=== PATIENT | female | born 1965 | race Caucasian/White ===

== ENCOUNTER 2023-02-22 14:55 | Outpatient (REF) | payer OTHER, SELFPAY ==
--- NOTE | ~2023-02-22 | MR_ITS ---
EXAMINATION: MRI of the right lower leg without contrast CLINICAL INFORMATION: Pain in right leg COMPARISON: None. TECHNIQUE: MRI right lower leg was performed without contrast and high field MRI scanner. Imaging was performed from the knee to the ankle. FINDINGS: Subcutaneous soft tissues: Scattered fluidlike signal throughout the lower leg primarily along the anterior medial aspect. This likely reflects edema rather than cellulitis. Muscles/tendons: Normal. Neurovascular structures normal. Bone: Normal. MR/MR lower leg RT wo con IMPRESSION: Mild fluidlike signal scattered about the lower leg primarily anteromedially more likely reflects edema than cellulitis. No mass. No fracture.
== END 2023-02-22 14:56 | disposition home or self-care (01) ==
LOC: HO.MRI 14:55
PROVIDERS: Visit Provider Family Medicine Sports Medicine
DX: M79.604 Pain in right leg (principal)
CPT/HCPCS: 73718

== ENCOUNTER 2023-05-26 11:29 | Outpatient (AMB) | payer OTHER, SELFPAY ==
--- NOTE | 2023-05-26 11:29 | A.OFFVIS_ITS ---
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 Wears compression all day and night. States reduce the swelling but doesn't treat the pain. Pt states she is on her feet a lot. Accompanied by: Self / Same As Patient Allergies No Known Allergies Allergy (Verified 05/26/23 11:33) HPI Circular Sawyer Helper for Leg Swelling HPI Details Very pleasant 58-year-old female presents for swelling of the lower extremities. 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 It is noted more so in right leg. Of note she has seen a sports marketing coordinator. She has been in compression for 24 hours a day. Seems to provide minimal relief. Patient denies any previous venous surgery or injections. Patient denies any history of DVT/ PE. Patient denies any history of phlebitis. Trial of compression includes - prescription 30-40 mmHg compression They now present for vascular evaluation regarding their varicose veins. [facility] Medical History (Updated 05/27/23 @ 10:36 by Toan Garcia MD) Hypothyroidism Social History (Updated 05/26/23 @ 11:35 by EVER Goodwin) Patient Tobacco Use Status: Never used Tobacco Review of Systems Const Reports as per HPI ENT Reports no additional complaints Card Denies chest pain, Denies chest pain at rest and Denies chest pain with activity Resp Denies chest congestion and Denies cough GI Reports no additional complaints Musc Details: pain over varicosities, aching of lower extremities, swelling, cramping, heaviness and tiredness, itching Denies abnormal gait Skin/Breast Reports pruritus and Denies wounds Neuro Reports no additional complaints and Denies abnormal gait Psych Denies no additional complaints Physical Exam Vital Signs: BMI result Body Mass Index 25.7 Const General: cooperative, healthy appearing and comfortable Orientation/consciousness: oriented to person, oriented to place and oriented to time Neck Carotids: no bruits Chest Chest palpation & inspection: normal inspection of the chest and normal palpation of entire chest wall Resp Effort & Inspection: normal respiratory effort and able to speak in complete sentences Cardio Rate: regular rate Heart sounds: S1 normal heart sound present and S2 normal heart sound present Peripheral pulses: Peripheral pulses 2+ throughout GI Inspection: Yes normal to inspection Skin Other: +2 edema, over right medial malleolus CEAP Classification C4 - skin color changes Ep - Etiology Primary As - superficial veins P - reflux General skin exam: dry skin Neuro General: oriented to person, oriented to place and oriented to time Extrem Other: Pinpoint tenderness over the right medial malleolus in particular the ankle and tendon Right lower extremity: full ROM, normal capillary refill and edema Left lower extremity: full ROM, normal capillary refill and edema Psych Mental Status: mental status grossly normal Assessment & Plan Assessment & Plan (1) Varicose veins of right lower extremity with inflammation: Code(s): I83.11 - Varicose veins of right lower extremity with inflammation Plan: In short patient has right lower extremity swelling and pain. I have taken the liberty of ordering venous insufficiency testing to rule that out. In addition I do think there is a musculoskeletal component to this as she does have pinpoint tenderness over there. Should this prove to be negative she may benefit from a podiatry evaluation. Thank you for allowing us to assist in her care. If there are any questions or concerns please do not hesitate to contact us Orders: Orders US venous insuf bilat 1 Week I83.11 - Varicose veins of right lower extremity with inflammation Coding Level of Care Code New Pt Level 4 (72948) Diagnoses Varicose veins of right lower extremity with inflammation I83.11
[2023-05-26 11:30] VITALS: BMI 25.7
== END 2023-05-26 11:58 | disposition home or self-care (01) ==
PROVIDERS: Visit Provider Surgery Vascular Surgery
DX: I83.11 Varicose veins of right lower extremity with inflammation (principal)
CPT/HCPCS: 99203

== ENCOUNTER → 2023-05-26 11:29 | Outpatient (BNVA) | payer OTHER, SELFPAY | PROVIDERS: Visit Provider Surgery Vascular Surgery ==

== ENCOUNTER 2023-06-15 13:01 | Outpatient (REF) | payer OTHER, SELFPAY ==
--- NOTE | ~2023-06-15 | US_ITS ---
EXAMINATION: US LOWER EXTREMITY VENOUS (REFLUX EXAM), BILATERAL CLINICAL INFORMATION: Chronic venous insufficiency with lower extremity varicose veins with inflammation COMPARISON: None. TECHNIQUE: Color flow triplex imaging and compression Doppler was performed to evaluate both the deep and the superficial systems bilaterally. To evaluate the superficial system, the examination was performed in the upright position. Color-flow Doppler ultrasound and compression ultrasound were utilized. In addition, maneuvers were utilized to demonstrate reflux. FINDINGS: 1. DEEP VENOUS ULTRASOUND OF THE RIGHT LOWER EXTREMITY: Common Femoral Vein: Compressible, normal respiratory variation and augmented flow. Femoral Vein: Compressible, normal color flow and augmentation. Popliteal Vein: Compressible, normal augmentation. Deep Reflux: There is no evidence of reflux in the deep system in either the common femoral vein, superficial femoral or the popliteal vein. There is no evidence of a Weber's cyst. 2. SUPERFICIAL ULTRASOUND WITH DOPPLER OF RIGHT LOWER EXTREMITY: GREAT SAPHENOUS VEIN: Saphenofemoral Junction: 0.7 cm; Reflux: 0 ms Proximal Thigh: 0.3 cm; Reflux: 0 ms Mid Thigh: 0.3 cm; Reflux: 0 ms Distal Thigh: 0.3 cm; Reflux: 2536 ms At Knee: 0.3 cm; Reflux: 1764 ms Proximal Calf: 0.3 cm; Reflux: 1668 ms Mid Calf: 0.2 cm; Reflux: 0 ms Distal Calf: 0.3 cm; Reflux: 0 ms DUPLICATED MEDIAL GREAT SAPHENOUS VEIN: Diameter: None imaged Reflux: NA DUPLICATED LATERAL GREAT SAPHENOUS VEIN: Diameter: 0.3 cm Reflux: None SMALL SAPHENOUS VEIN: Saphenopopliteal Junction: 0.3 cm; Reflux: 0 ms Proximal: 0.1 cm; Reflux: 0 ms Distal: 0.2 cm; Reflux: 0 ms VEIN OF GIACOMINI: Size: NA Reflux: NA PERFORATORS: Location: Mid calf Size: 0.3 cm Reflux: None VARICOSITIES: Location: Thigh into the proximal calf between both the lateral duplicated great saphenous vein and great saphenous vein Size: 0.3 cm Reflux: 2404 ms 3. DEEP VENOUS ULTRASOUND OF THE LEFT LOWER EXTREMITY: Common Femoral Vein: Compressible, normal respiratory variation and augmented flow. Femoral Vein: Compressible, normal color flow and augmentation. Popliteal Vein: Compressible, normal augmentation. Deep Reflux: There is no evidence of reflux in the deep system in either the common femoral vein, superficial femoral or the popliteal vein. There is no evidence of a Weber's cyst. 4. SUPERFICIAL ULTRASOUND WITH DOPPLER OF LEFT LOWER EXTREMITY: GREAT SAPHENOUS VEIN: Saphenofemoral Junction: 0.5 cm; Reflux: 0 ms Proximal Thigh: 0.4 cm; Reflux: 0 ms Mid Thigh: 0.4 cm; Reflux: 0 ms Distal Thigh: 0.3 cm; Reflux: 0 ms At Knee: 0.3 cm; Reflux: 0 ms Proximal Calf: 0.3 cm; Reflux: 0 ms Mid Calf: 0.2 cm; Reflux: 0 ms Distal Calf: 0.2 cm; Reflux: 0 ms DUPLICATED MEDIAL GREAT SAPHENOUS VEIN: Diameter: None imaged Reflux: NA DUPLICATED LATERAL GREAT SAPHENOUS VEIN: Diameter: 0.3 cm Reflux: None SMALL SAPHENOUS VEIN: Saphenopopliteal Junction: 0.3 cm; Reflux: 0 ms Proximal: 0.3 cm; Reflux: 0 ms Distal: 0.2 cm; Reflux: 0 ms VEIN OF GIACOMINI: Size: NA Reflux: NA PERFORATORS: Location: None imaged Size: NA Reflux: NA VARICOSITIES: Location: Proximal thigh Size: 0.4 cm Reflux: None US/US venous insuf bilat IMPRESSION: Right: Segmental areas of reflux in the great saphenous vein extending from the distal thigh to the proximal calf. There are varicose veins within the calf extending into the proximal thigh arising from of both the great saphenous vein and lateral duplicated great saphenous vein Left: No significant venous insufficiency or reflux in the left great saphenous vein or small saphenous vein
== END 2023-06-15 13:02 | disposition home or self-care (01) ==
LOC: HO.US 13:01
PROVIDERS: Visit Provider Surgery Vascular Surgery
DX: I83.11 Varicose veins of right lower extremity with inflammation (principal)
CPT/HCPCS: 93970

== ENCOUNTER 2023-09-14 13:28 | Outpatient (AMB) | payer OTHER, SELFPAY ==
[2023-09-14 13:36] VITALS: BMI 25.7
--- NOTE | 2023-09-14 13:36 | A.OFFVIS_ITS ---
Vital Signs 09/14/23 13:36 Height 5 ft 4 in Weight 150 lb BMI 25.7 Intake Visit Reasons: fu after ultrasound Intake Note: follow up US 06/15/23 for Right LE swelling, states on her feet a lot Accompanied by: Self / Same As Patient Allergies No Known Allergies Allergy (Verified 09/14/23 13:40) HPI HPI fu after ultrasound: Details: Very pleasant 58-year-old female presents for follow-up regarding right lower extremity pain and swelling. It has been a source of discomfort for her. 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 She has had a trial of compression with some mild relief. She now presents for follow-up with venous insufficiency testing. [facility] Medical History Hypothyroidism Social History Patient Tobacco Use Status: Never used Tobacco Review of Systems Const Reports as per HPI ENT Reports no additional complaints Card Denies chest pain, Denies chest pain at rest and Denies chest pain with activity Resp Denies chest congestion and Denies cough GI Reports no additional complaints Musc Details: pain over varicosities, aching of lower extremities, swelling, cramping, heaviness and tiredness, itching Denies abnormal gait Skin/Breast Reports pruritus and Denies wounds Neuro Reports no additional complaints and Denies abnormal gait Psych Denies no additional complaints Physical Exam Vital Signs: BMI result Body Mass Index 25.7 Const General: cooperative, healthy appearing and comfortable Orientation/consciousness: oriented to person, oriented to place and oriented to time Neck Carotids: no bruits Chest Chest palpation & inspection: normal inspection of the chest and normal palpation of entire chest wall Resp Effort & Inspection: normal respiratory effort and able to speak in complete sentences Cardio Rate: regular rate Heart sounds: S1 normal heart sound present and S2 normal heart sound present Peripheral pulses: Peripheral pulses 2+ throughout GI Inspection: Yes normal to inspection Skin Other: +2 edema, large rope-like varicosities greater than 4 mm right calf CEAP Classification C4 - skin color changes Ep - Etiology Primary As - superficial veins P - reflux General skin exam: dry skin Neuro General: oriented to person, oriented to place and oriented to time Extrem Right lower extremity: full ROM, normal capillary refill and edema Left lower extremity: full ROM, normal capillary refill and edema Psych Mental Status: mental status grossly normal Results Reviewed Results Reviewed: Brief summary of venous insufficiency testing is as follows: right great saphenous vein: Positive right small saphenous vein: negative right accessory vein: none present left great saphenous vein: negative left small saphenous vein: negative left accessory vein: none present Please note there is no evidence of any venous aneurysms or significant tortuosity Assessment & Plan Assessment & Plan (1) Varicose veins of right lower extremity with inflammation: Code(s): I83.11 - Varicose veins of right lower extremity with inflammation Category: Medical Plan: This patient has varicose veins with inflammation. They continue to be a source of discomfort for the patient. The patient has tried conservative treatment with compression, leg elevation and exercise program for over 3 months time. They have been compliant with all treatment. This has provided minimal relief for the patient. I do not anticipate this course of treatment will alter the underlying etiology. The patient has been scheduled for lower extremity venous treatment inclusive of --- right great saphenous vein Cyanoacralate ablation. Risks, benefits, and complications of this procedure has been discussed in detail with the patient including but not limited to bleeding, infection, and the development of a DVT. The patient has demonstrated a clear understanding and has consented. We will schedule the patient as soon as possible. Thank you for allowing us to participate in this patient's care. If there are any questions or concerns please do not hesitate to contact us. Coding Level of Care Code Est Pt Level 4 (80576) Diagnoses Varicose veins of right lower extremity with inflammation I83.11
== END 2023-09-14 14:26 | disposition home or self-care (01) ==
PROVIDERS: Visit Provider Surgery Vascular Surgery
DX: I83.11 Varicose veins of right lower extremity with inflammation (principal)
CPT/HCPCS: 99214

== ENCOUNTER → 2023-09-14 13:28 | Outpatient (BNVA) | payer OTHER, SELFPAY | PROVIDERS: Visit Provider Surgery Vascular Surgery ==

== ENCOUNTER 2024-01-06 09:20 | Outpatient (AMB) | payer OTHER, SELFPAY ==
--- NOTE | 2024-01-06 09:46 | MHC.OFFVIS ---
Intake Visit Reasons: Right GSV RFA Accompanied by: Self / Same As Patient Allergies No Known Allergies Allergy (Verified 01/06/24 09:46) PFSH Medical History Hypothyroidism Social History Patient Tobacco Use Status: Never used Tobacco Office Procedures Vascular Office Procedure Details Details: Diagnosis: Varicose veins with inflammation of right leg Procedure: Endovenous radiofrequency ablation of the right great saphenous vein(s) of the lower extremity. Anesthesia: Local infiltration 10 cc, Tumescent 200 cc. Estimated Blood Loss: minimal Specimen: Varicose veins The patient was transferred to the procedure suite and the insufficient saphenous vein was mapped by ultrasound and diagrammed on the overlying skin. The depth and diameter of the vein(s) to be treated was documented. The varicose tributary veins and suitable access sites were identified and mapped as well. The patient was then positioned supine on the procedure table. The affected limb was prepped and draped in the usual sterile fashion. The RF catheter was placed on the sterile field, flushed and wiped down, prepared, and connected by a sterile cable. The patient was placed in supine position and local anesthesia was instilled in the skin overlying the access site. A skin incision was made overlying the identified and mapped great saphenous vein entry site. The vein was accessed using ultrasound guidance and the Seldinger technique, a guide wire was introduced through the needle, which was then exchanged over the guide wire for a 6F sheath, which was secured in place. The guide wire was removed and the sheath was flushed. The RF catheter was placed into the vein through the sheath and preferentially, imaging was used to place the catheter tip just inferior to the superficial epigastric vein to preserve normal physiological flow in that vein. Additionally, it was confirmed by ultrasound guidance that the catheter tip was also placed a minimum of 1.5cm distal to the saphenofemoral junction. After the RF catheter position was verified by ultrasound, tumescent anesthesia was infiltrated, under ultrasound guidance, precisely into the perivenous compartment along the entire length of vein from the entry site to the saphenofemoral junction until a halo of fluid was noted around the vein. The patient was then placed in supine position to further exsanguinate the superficial venous system. After RF catheter position was again confirmed with ultrasound imaging, and under direct external compression along the length of the heating element, RF energy was applied. The vein was segmentally ablated by heating a 8 cm segment and then indexing the catheter forward by 7.5 cm until the treatment length is completed. Device temperature was maintained at 120 plus or minus 5 degrees C with an initial power level of 40W dropping to below 20W for each treatment. Total vein length treated 40 cm Total cycles of RF 6. Repeat ultrasound of the saphenous vein was performed, confirming successful treatment. The catheter and sheath were withdrawn and hemostasis established with direct pressure. After assuring hemostasis, the skin incision over the saphenous vein was closed with a bandage and a compression wrap, and/ or graduated compression stocking was applied from the level of the foot to the most proximal level of the thigh. 63272 - Endovenous RF, 1st Vein All charges added?: Procedure code (CPT) selection complete Assessment & Plan Assessment & Plan (1) Varicose veins of right lower extremity with inflammation: Comment: 01/06/2024 - right great saphenous vein radiofrequency ablation Code(s): I83.11 - Varicose veins of right lower extremity with inflammation Category: Medical Plan: See op note Orders: Orders US venous duplex LE RT 01/09/24 M79.604 - Pain in right leg Coding Level of Care Code Procedure Only Diagnoses Varicose veins of right lower extremity with inflammation I83.11 CPT Codes Details - Vascular 1: 05578 - Endovenous RF, 1st Vein ([id number])
== END 2024-01-06 11:03 | disposition home or self-care (01) ==
PROVIDERS: Visit Provider Surgery Vascular Surgery
DX: I83.11 Varicose veins of right lower extremity with inflammation (principal)
CPT/HCPCS: 36475

== ENCOUNTER → 2024-01-06 09:20 | Outpatient (BNVA) | payer OTHER, SELFPAY | PROVIDERS: Visit Provider Surgery Vascular Surgery | DX: I83.11 Varicose veins of right lower extremity with inflammation (principal) | CPT/HCPCS: 36475; J2003; J2004 ==

== ENCOUNTER 2024-01-09 14:29 | Outpatient (REF) | payer OTHER, SELFPAY ==
--- NOTE | ~2024-01-09 | US_ITS ---
EXAMINATION: TRIPLEX SCANNING OF RIGHT LOWER EXTREMITY; SUPERFICIAL ULTRASOUND WITH DOPPLER OF RIGHT LOWER EXTREMITY CLINICAL INFORMATION: Status post RF ablation the right great saphenous vein originally performed on 01/06/2024. COMPARISON: Preprocedure studies. TECHNIQUE: Color flow triplex imaging and compression Doppler were performed as well as superficial ultrasound with Doppler. FINDINGS: TRIPLEX SCANNING OF RIGHT LOWER EXTREMITY: Respiratory variation, normal compression and augmented flow are noted throughout the lower extremity. The visualized common femoral vein, femoral vein, profunda femoral vein, popliteal vein and the calf veins show no evidence of deep venous thrombosis. There is no evidence of Weber's cyst. SUPERFICIAL ULTRASOUND WITH DOPPLER OF RIGHT LOWER EXTREMITY: The right great saphenous vein is occluded from the access site to 3.7 cm before the saphenofemoral junction. There is no extension of thrombus into the deep system. US/US venous duplex LE RT IMPRESSION: 1. Normal triplex scan of the right without evidence of deep venous thrombosis. 2. Excellent appearance status post ablation of the right great saphenous vein. Electronically signed by: Poncho Simms MD 01/10/2024 12:32 AM MICHI
== END 2024-01-09 14:30 | disposition home or self-care (01) ==
LOC: HO.US 14:29
PROVIDERS: Visit Provider Surgery Vascular Surgery
DX: M79.604 Pain in right leg (principal)
CPT/HCPCS: 93971

== ENCOUNTER 2024-01-17 09:55 | Outpatient (AMB) | payer OTHER, SELFPAY ==
[2024-01-17 09:59] VITALS: BMI 25.7
--- NOTE | 2024-01-17 09:59 | MHC.OFFVIS ---
Vital Signs 01/17/24 09:59 Height 5 ft 4 in Weight 150 lb BMI 25.7 Intake Visit Reasons: 2 week follow up Right GSV RFA 01/06/24 Intake Note: 2 week follow up Right GSV RFA 01/06/24. Pt states she started getting a rash this past tuesday over treated area and is now getting hives over her body. Accompanied by: Self / Same As Patient Allergies No Known Allergies Allergy (Verified 01/17/24 10:05) HPI HPI 2 week follow up Right GSV RFA 01/06/24: Details: Pleasant 58-year-old female presents for follow-up status post right great saphenous vein radiofrequency ablation. She reports that overall her leg appears to be doing somewhat better. The swelling in the ankle and calf have improved a little bit. Her only concern is that there is a bit of a reaction along the leg. She is also noticing a rash in her right upper extremity. She now presents for routine postprocedure follow-up. Of note postprocedure ultrasound was negative for DVT. [facility] Medical History Hypothyroidism Social History Patient Tobacco Use Status: Never used Tobacco Review of Systems Const All systems reviewed & are unremarkable except as noted in HPI and below Reports no additional complaints ENT Reports Normal hearing present Card Denies chest pain, Denies chest pain at rest, Denies chest pain with activity and Denies pedal edema Resp Denies cough GI Denies abdominal pain Musc Denies abnormal gait, Denies muscle cramps and Denies radiating pain into limb Skin/Breast Denies skin ulcer and Denies wounds Neuro Reports Normal hearing present and Denies abnormal gait Psych Reports no additional complaints Physical Exam Vital Signs: BMI result Body Mass Index 25.7 Const General: cooperative, healthy appearing and comfortable Orientation/consciousness: oriented to person, oriented to place and oriented to time HEENT Head: Yes normal to inspection Neck Neck: Yes normal visual inspection Carotids: no bruits Chest Chest palpation & inspection: normal inspection of the chest Resp Effort & Inspection: normal respiratory effort and able to speak in complete sentences Auscultation: clear to auscultation bilaterally, no crackles, no rales, no rhonchi and no wheezes Cardio Rate: regular rate Rhythm: regular rhythm Heart sounds: S1 normal heart sound present and S2 normal heart sound present Bruits: no carotid bruits Peripheral pulses: Peripheral pulses 2+ throughout GI Inspection: Yes normal to inspection Skin Wounds: no wounds Hair: normal Neuro General: oriented to person, oriented to place and oriented to time Cranial nerves: Yes CN's II-XII intact bilaterally and Yes Normal hearing present Cognition (Neuro): normal cognition Motor exam (neuro): 5/5 motor strength present throughout Extrem Other: venous exam: No significant superficial varicosities or spider telangiectasias, minimal edema General: No clubbing, No cyanosis and No edema Psych Appearance: grossly normal Mental Status: mental status grossly normal Speech and movement: Normal speech and movement present Assessment & Plan Assessment & Plan (1) Varicose veins of right lower extremity with inflammation: Comment: 01/06/2024 - right great saphenous vein radiofrequency ablation Code(s): I83.11 - Varicose veins of right lower extremity with inflammation Category: Medical Plan: The patient has done extremely well with all venous treatments. She may have a bit of an allergic reaction and we did discuss use of Benadryl. Should it worsen I requested that she call us back and may require a Medrol Dosepak and Claritin. Patient's may often experience postprocedure phlebitic episodes and I have discussed with the patient use of warm compresses and NSAIDS if tolerated for pain discomfort. In addition, I have discussed continued conservative measures including use of compression, leg elevation, and exercise. The patient was also given an information sheet regarding appropriate use of compression stockings and future purchases. Thank you for allowing us to care for your patient with venous disease. Coding Level of Care Code Est Pt Level 3 (84551) Diagnoses Varicose veins of right lower extremity with inflammation I83.11
== END 2024-01-17 10:36 | disposition home or self-care (01) ==
PROVIDERS: Visit Provider Surgery Vascular Surgery
DX: I83.11 Varicose veins of right lower extremity with inflammation (principal)
CPT/HCPCS: 99213

== ENCOUNTER 2024-08-07 13:08 | Outpatient (AMB) | payer OTHER, SELFPAY ==
[2024-08-07 13:11] VITALS: BMI 25.7
--- NOTE | 2024-08-07 13:11 | MHC.OFFVIS ---
Vital Signs 08/07/24 13:11 Height 5 ft 4 in Weight 150 lb BMI 25.7 Intake Visit Reasons: follow up ablation new VV Intake Note: Follow up new VV on Right LE w/ swelling. Hx of Right GSV RFA 01/06/24. Pt states that it started after last vein procedure. 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 The patient underwent a right great saphenous vein ablation on January 06, 2024, resulting in initial symptomatic improvement. However, she presents today with ongoing venous issues, including notable episodic swelling in the right leg, occasionally extending to the foot. This symptomatology includes a persistent sensation of tightness and splotchiness on the right side, which varies in severity. The patient observes noticeable swelling on the right side compared to the left, exacerbated since the procedure. Scarring and skin changes such as splotchiness have been observed, although their direct relationship to the vein condition is uncertain. To address these symptoms, a repeat ultrasound has been advised for diagnostic re-evaluation and to ascertain any deviations from the expected physiological re-channeling of blood flow post-ablation. Despite intermittent mild discomfort on the left side, the patient reports no substantial or consistent issues. In addition, the potential contributory aspect of inflammatory processes such as tendinitis was noted, possibly influencing the generalized leg swelling. [facility] Medical History Hypothyroidism Social History Patient Tobacco Use Status: Never used Tobacco Review of Systems Const Reports as per HPI ENT Reports no additional complaints Card Denies chest pain, Denies chest pain at rest and Denies chest pain with activity Resp Denies chest congestion and Denies cough GI Reports no additional complaints Musc Details: pain over varicosities, aching of lower extremities, swelling, cramping, heaviness and tiredness, itching Denies abnormal gait Skin/Breast Reports pruritus and Denies wounds Neuro Reports no additional complaints and Denies abnormal gait Psych Denies no additional complaints Physical Exam Vital Signs: BMI result Body Mass Index 25.7 Const General: cooperative, healthy appearing and comfortable Orientation/consciousness: oriented to person, oriented to place and oriented to time Neck Carotids: no bruits Chest Chest palpation & inspection: normal inspection of the chest and normal palpation of entire chest wall Resp Effort & Inspection: normal respiratory effort and able to speak in complete sentences Cardio Rate: regular rate Heart sounds: S1 normal heart sound present and S2 normal heart sound present Peripheral pulses: Peripheral pulses 2+ throughout GI Inspection: Yes normal to inspection Skin Other: +2 edema, large rope-like varicosities greater than 4 mm right calf CEAP Classification C4 - skin color changes Ep - Etiology Primary As - superficial veins P - reflux General skin exam: dry skin Neuro General: oriented to person, oriented to place and oriented to time Extrem Right lower extremity: full ROM, normal capillary refill and edema Left lower extremity: full ROM, normal capillary refill and edema Psych Mental Status: mental status grossly normal Assessment & Plan Assessment & Plan (1) Varicose veins of right lower extremity with inflammation: Comment: 01/06/2024 - right great saphenous vein radiofrequency ablation Code(s): I83.11 - Varicose veins of right lower extremity with inflammation Category: Medical Plan: A right-sided ultrasound is planned to evaluate the patient's venous status post-ablation. This diagnostic measure will help elucidate the basis of her current swelling and guide further management. Compression stockings and leg elevation remain recommended interim strategies to alleviate symptoms. Follow-up will be scheduled to discuss the results and consider any additional interventions based on the findings. Patient was informed and verbally consented to the use of an ambient scribe for clinic note documentation during this visit. Plan Patient was informed and verbally consented to the use of an ambient scribe for clinic note documentation during this visit. Orders: Orders US venous duplex LE RT 1 Week I83.11 - Varicose veins of right lower extremity with inflammation Patient Instructions: - Use compression stockings as recommended. - Elevate legs when possible to reduce swelling. - Schedule an ultrasound of the right leg as advised. - Return for follow-up to review ultrasound results and discuss next steps. Coding Level of Care Code Est Pt Level 4 (43600) Diagnoses Varicose veins of right lower extremity with inflammation I83.11
--- OUTSIDE RECORDS SUMMARY | 2024-08-07 15:27 | XMS_ITS | Encounter Summary ---
Author Organization [facility] Address [address] [place] [address] Care Team Providers Care Plant Protection Superintendent Name Role Phone Sim Katiuska Primary Care Provider [phone] Reason for Visit * Reason Onset Date Comments PAC Appt Request - EstablishedDRJj VIVAR 07/26/19 Encounter Details Date Type Department Care Team (Late st Contact Info) Description 07/25/2024 Telephone [facility] [address] [place] [phone] Telephone Intake, Staff PAC Appt Request - EstablishedDR. CB Social History Tobacco Use Types Packs/Day Years Used Date Smoking Tobacco: Former Cigarettes Smokeless Tobacco: Never Alcohol Use Standard Drinks/Week Comments Yes 0 (1 standard drink = 0.6 oz pur e alcohol) occ Comments Unknown Sex and Gender Information Value Date Recorded Sex Assigned at Female 04/27/2024 2:02 PM EST Legal Sex Female 2:01 PM EST Gender Identity Female 04/27/2024 2:02 PM EST Sexual Orientation Straight 05/30/2024 9: 18 PM EDT documented as of this encounter Plan of Treatment Upcoming Encounters Date Type Department Care Team (Late st Contact Info) Description 11/27/2024 3:45 PM EDT Follow-Up [facility] [address] [place] [phone] Roland Vivar MD [address] [place] [address] documented as of this encounter Visit Diagnoses Not on filedocumented in this encounter Care Teams Plant Protection Superintendent Relationship Specialty Start Date End Date [place], [place] [address] [place] [address] PCP - General 04/27/24 documented as of this encounter
== END 2024-08-07 13:54 | disposition home or self-care (01) ==
LOC: HO.HVS 13:08
PROVIDERS: Visit Provider Surgery Vascular Surgery
DX: I83.11 Varicose veins of right lower extremity with inflammation (principal)
CPT/HCPCS: 99214

== ENCOUNTER → 2024-08-07 13:08 | Outpatient (BNVA) | payer OTHER, SELFPAY | PROVIDERS: Visit Provider Surgery Vascular Surgery ==

== ENCOUNTER 2024-10-10 13:27 | Outpatient (REF) | payer OTHER, SELFPAY ==
--- NOTE | ~2024-10-10 | US_ITS ---
EXAMINATION: US LOWER EXTREMITY VENOUS (REFLUX EXAM), RIGHT LOWER EXTREMITY CLINICAL INFORMATION: Varices. COMPARISON: None. TECHNIQUE: Color flow triplex imaging and compression Doppler was performed to evaluate both the deep and the superficial systems right lower extremity. To evaluate the superficial system, the examination was performed in the upright position. Color-flow Doppler ultrasound and compression ultrasound were utilized. In addition, maneuvers were utilized to demonstrate reflux. FINDINGS: 1. DEEP VENOUS ULTRASOUND OF THE RIGHT LOWER EXTREMITY: Common Femoral Vein: Compressible, normal respiratory variation and augmented flow. Femoral Vein: Compressible, normal color flow and augmentation. Popliteal Vein: Compressible, normal augmentation. Deep Reflux: There is no evidence of reflux in the deep system in either the common femoral vein, superficial femoral or the popliteal vein. There is no evidence of a Weber's cyst. 2. SUPERFICIAL ULTRASOUND WITH DOPPLER OF RIGHT LOWER EXTREMITY: GREAT SAPHENOUS VEIN: Saphenofemoral Junction: 0.5 cm; Reflux: 0 ms Proximal Thigh: 0.4 cm; Reflux: 0 ms Mid Thigh: Not seen. Distal Thigh: Not seen. At Knee: Not seen. Proximal Calf: Not seen. Mid Calf: Not seen. Distal Calf: Not seen. DUPLICATED MEDIAL GREAT SAPHENOUS VEIN: Diameter: None imaged Reflux: NA DUPLICATED LATERAL GREAT SAPHENOUS VEIN: Diameter: 0.4 cm. Reflux: NA SMALL SAPHENOUS VEIN: Saphenopopliteal Junction: 0.3 cm; Reflux: 0 ms Proximal: 0.3 cm; Reflux: 0 ms Distal: 0.2 cm; Reflux: 0 ms VEIN OF GIACOMINI: Size: NA Reflux: NA PERFORATORS: Location: Great saphenous vein, mid and distal calf. Size: 0.2 and 0.1 cm respectively. Reflux: 2628 ms in the distal calf. VARICOSITIES: Location: Accessory saphenous vein lateral proximal segment. Size: 0.3 cm. Reflux: NA US/US venous duplex LE RT IMPRESSION: Right: Varices without reflux in the accessory saphenous vein, lateral proximal segment.. Perforators with reflux at the great saphenous vein distal calf. Electronically signed by: Jacobo Chacon MD 10/11/2024 07:47 AM EDT
--- OUTSIDE RECORDS SUMMARY | 2024-10-10 13:54 | XMS_ITS | Clinical Summary ---
Author Organization [facility] Address [address] [place] [phone] Phone Care Team Providers Care Label Maker Name Role Phone Naa Canales MD Unavailable [phone] Katiuska Montemayor SPORTS BETTING MANAGER Primary Care Provide r Allergies No known active allergies Medications FLUoxetine (PROZAC) 40 MG capsule Take 20 mg by mouth daily. Active levothyroxine (TIROSINT) 100 mcg Cap Take 100 mcg by mouth daily. Active omeprazole (PRILOSEC) 10 MG capsule Take 10 mg by mouth every other day. Active loratadine (CLARITIN) 10 mg tablet Take 10 mg by mouth daily. Active albuterol 90 mcg/actuation inhaler Inhale 2 puffs into the lungs every 6 (six) hours as needed for wheezing. Active juifjco-Y5-ulub -copper-baldemar 325 mg-12.5 mcg -2.75 mg Tab Take 1 tablet by mouth 3 (three) times a day. Active zolpidem (AMBIEN) 10 mg tablet Take 1 tablet by mouth as needed. 3 Active traZODone (DESYREL) 50 MG tablet Take 1 tablet as needed by oral route. Active sod sulf-pot chloride-mag sulf (SUTAB) 1.479-0.188- 0.225 gram Tab TAKE DIRECTED-PT HAS INSTRUCTIONS Active famotidine (PEPCID) 20 MG tablet Take 1 tablet by mouth 2 (two) times a day. Active diclofenac sodium (SOLARAZE) 3 % Gel APPLY TO LESION AREAS BY TOPICAL ROUTE 2 TIMES PER DAY 3 Active cyanocobalamin, vitamin B-12, 1,[address] sublingual tablet Place 1 tablet by sublingual route. 3 Active clotrimazole-be tamethasone (LOTRISONE) cream APPLY TO THE AFFECTED AND SURROUNDING AREAS OF SKIN BY TOPICAL ROUTE 2 TIMES PER DAY IN THE MORNING AND EVENING FOR 2 WEEKS 3 Active atorvastatin (LIPITOR) 10 MG tablet Take 10 mg by mouth daily. Active furosemide (LASIX) 20 MG tablet Take 1 tablet (20 mg total) by mouth daily. 90 tablet 1 4 Active Active Problems Problem Noted Date Diagnosed Date Perimenopause 10/19/2019 Surveillance of intrauterine contraceptive devic e 10/19/2019 Assessment & Plan (10/19/2019 11:27 AM EDT): Insertion 2008. Advised patient IUD may still stay in place. Patient is still menstruating irregularly and likes the idea of continued contraceptive coverage. Will consider removal next year. Mechanical breakdown of intrauterine contracepti ve device Encounters Date Type Department Care Team Description 10/09/2024 3:54 PM EDT - 10/09/2024 11:59 PM EDT Hospital Encounter [address] [address] Katiuska Montemayor FNP Arrived Discharge Disposition: Home or Self Care 09/19/2024 Transcribe Orders Virtual Department [address] [place] [phone] Katiuska Montemayor FNP Encounter for screening mammogram for malignant neoplasm of breast (Primary Dx) 09/18/2024 Procedure Pass [address] [address] 09/18/2024 Transcribe Orders Virtual Department [address] [place] [address] Katiuska Montemayor FNP Right sided sciatica (Primary Dx) 09/17/2024 9:09 AM EDT - 09/17/2024 11:59 PM EDT Hospital Encounter [facility] [address] [place] [address] [place] [address] Katiuska Montemayor FNP Discharge Disposition: Home or Self Care 09/17/2024 Transcribe Orders [address] [place] [address] Katiuska Montemayor FNP Tick bite of head, unspecified part, initial encounter (Primary Dx); Fatigue, unspecified type; Screening for lipoid disorders from Last 3 Months Family History Medical History Relation Comments No Known Problems Brother 1 No Known Problems Brother 2 No Known Problems Daughter 1 No Known Problems Daughter 2 Bladder Cancer Father Parkinson's disease Father Angina Maternal Grandmother Breast cancer Maternal Grandmother Breast cancer Mother neg genetic tesi ng; has done well Pacemaker Mother Relation Status Comments Brother 1 Alive Brother 2 Alive Daughter 1 Alive Daughter 2 Alive Father Alive Maternal Grandmother Mother Alive Social History Tobacco Use Types Packs/Day Years Used Date Smoking Tobacco: Former Cigarettes 0.3 2 Smokeless Tobacco: Never Alcohol Use Standard Drinks/Week Comments Yes 2 (1 standard drink = 0.6 oz pur e alcohol) Education Answer Date Recorded Are you interested in more education? Not on parminder e 06/25/2022 Are you concerned about learning? Not on file 06/25/2022 No 06/25/2022 No 06/25/2022 Digital Access Answer Date Recorded No 07/26/2022 No 07/26/2022 Reliable internet access at home? Not on file 07/26/2022 Device with a working camera? 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 Not on file Not o n file Not on file Last Filed Vital Signs Vital Sign Reading Time Taken Comments Blood Pressure 118/64 06/08/2023 10:10 AM EDT Pulse 78 06/08/2023 10:10 AM EDT Temperature 37 C (98.6 F) 05/16/2020 2:15 PM EDT Respiratory Rate 16 05/16/2020 2:15 PM EDT Oxygen Saturation 95% 06/08/2023 10:10 AM EDT Inhaled Oxygen Concentration - - Weight 66.7 kg (147 lb) 10/05/2024 11:24 AM EDT Height 162.6 cm (5' 4 ) 10/05/2024 11:24 AM EDT Body Mass Index 25.23 10/05/2024 11:24 AM EDT Plan of Treatment Health Maintenance Due Date Last Done Comments DEPRESSION SCREENING 1975 SMOKING Hx and SMOKELESS TOBACCO SCREENING 05/16/1976 HEPATITIS C SCREENING 05/16/1981 HIV ONE-TIME SCREENING (18-65 YEARS) 05/16/1981 COLOGUARD 05/16/2008 COLONOSCOPY 05/16/2008 COLORECTAL CANCER SCREENING 05/16/2008 FIT TEST 05/16/2008 FOBT 05/16/2008 SIGMOIDOSCOPY 05/16/2008 VIRTUAL COLONOSCOPY 05/16/2008 PNEUMOCOCCAL VACCINES (50+ years) (1 of 1 - PCV) 05/16/2013 MAMMOGRAM 07/05/2020 07/05/2018, 12/27/2014 PAP SMEAR 01/06/2021 01/07/2016, 12/23/2015 Adult Td,Tdap Booster 07/28/2025 07/29/2015 TSH LEVEL 09/17/2025 09/17/2024 SCREENING FOR DIABETES 09/18/2027 09/17/2024 LIPID PANEL 09/17/2029 09/17/2024, 07/2 02/2024, 12/19/2017 RSV VACCINE (1 - 1-dose 75+ series) 05/16/2038 HEPATITIS A VACCINES Aged Out 03/22/2016, 08/05/19 16 No longer eligible based on patient's age to complete this topic ZOSTER VACCINES Completed 09/08/2021, 05/04/2021 COVID-19 VACCINE Completed 02/27/2024, , 12/30/2021, Additional history exists HIB VACCINES Aged Out No longer eligi ble based on patient's age to complete this topic MENINGOCOCCAL VACCINES (ACWY) Aged Out No longer eligible based on patient's age to complete this topic MENINGOCOCCAL VACCINES (B) Aged Out N o longer eligible based on patient's age to complete this topic Medical Devices Implanted Type Area Color Coater Device Identifier Shelf Expiration Date Model / Serial / Lot Intrauterine Device Intrauterine Device Nodata NODATA Left: Breast Description:Marker Procedures Procedure Name Priority Date/Time Associated Diagnosis Comments Antinuclear antibody, titer and pattern Routine 09/17/2024 9:15 AM EDT ANTINUCLEAR ANTIBODY (THOMAS) Routine 09/17/2024 9:15 AM EDT Tick bite of head, unspecified part, initial encounter Fatigue, unspecified type Screening for lipoid disorders COMPREHENSIVE METABOLIC PANEL Routine 09/17/2024 9:15 AM EDT Tick bite of head, unspecified part, initial encounter Fatigue, unspecified type Screening for lipoid disorders LIPID PANEL Routine 09/17/2024 9:15 AM EDT Tick bite of head, unspecified part, initial encounter Fatigue, unspecified type Screening for lipoid disorders TSH Routine 09/17/2024 9:15 AM EDT Tick bite of head, unspecified part, initial encounter Fatigue, unspecified type Screening for lipoid disorders CBC AND DIFFERENTIAL Routine 09/17/2024 9:15 AM EDT Tick bite of head, unspecified part, initial encounter Fatigue, unspecified type Screening for lipoid disorders 25-OH VITAMIN D Routine 09/17/2024 9:15 AM EDT Tick bite of head, unspecified part, initial encounter Fatigue, unspecified type Screening for lipoid disorders VITAMIN B12 Routine 09/17/2024 9:15 AM EDT Tick bite of head, unspecified part, initial encounter Fatigue, unspecified type Screening for lipoid disorders LYME SCREEN WITH REFLEX TO WESTERN BLOT, BLOOD Routine 09/17/2024 9:15 AM EDT Tick bite of head, unspecified part, initial encounter Fatigue, unspecified type Screening for lipoid disorders BABESIA SPECIES PCR Routine 09/17/2024 9:15 AM EDT Tick bite of head, unspecified part, initial encounter Fatigue, unspecified type Screening for lipoid disorders HM MAMMOGRAPHY Routine 07/05/2018 HM PAP SMEAR FOR RESULT ENTRY ONLY Routine 01/07/2016 from Last 3 Months or Most Recently Relevant to Health Maintenance Results * Antinuclear antibody, titer and pattern (09/17/2024 9:15 AM EDT) [facility] THOMAS TITER 1:160 Nucleolar [facility] 09/17/2024 9:15 AM EDT 09/17/2024 9:21 AM EDT [facility] LAB BLOOD ORDERABLES Final Result Performing Organization Address [facility] de Phone Number [facility] [address] [place] [address] * Babesia species PCR (09/17/2024 9:15 AM EDT) [facility] B.Microti PCR Negative Negative [facility] DPT OF LAB MED AND PAT+ B.Duncani PCR Negative Negative [facility] DPT OF LAB MED AND PAT+ B.Divergens/MO-1 PCR Negative Negative [facility] DPT OF LAB MED AND PAT+ Comment: (NOTE) ADDITIONAL INFORMATION This test was developed and its performance characteristics determined by [facility] in a manner consistent with CLIA requirements. This test has not been cleared or approved by the U.S. Food and Drug Administration. Blood 09/17/2024 9:15 AM EDT 09/17/2024 9:21 AM EDT [facility] LAB BLOOD ORDERABLES Final Result Performing Organization Address [facility]/ZIP Co de Phone Number [facility] DPT OF LAB MED AND PAT+ [address] [place] [address] * Lyme Screen with Reflex to Immunoblot, Blood (09/17/2024 9:15 AM EDT) [facility] Lyme AB IgG Negative Negative [facility] Lyme AB IgM Negative Negative [facility] Blood 09/17/2024 9:15 AM EDT 09/17/2024 9:21 AM EDT [facility] LAB BLOOD ORDERABLES Final Result [address] [address] * Comprehensive metabolic panel (09/17/2024 9:15 AM EDT) SODIUM 142 133 - 146 mmol/L [facility] POTASSIUM 4.3 3.3 - 5.1 mmol/L [facility] CHLORIDE 106 96 - 108 mmol/L [facility] CO2 26 21 - 35 mmol/L [facility] BUN 15 6 - 19 mg/dL [facility] CREATININE 0.70 0.5 - 1.5 mg/dL [facility] GLUCOSE 95 70 - 99 mg/dL [facility] ALBUMIN 4.1 3.9 - 4.8 g/dL [facility] TOTAL PROTEIN 7.2 6.5 - 8.0 g/dL [facility] CALCIUM 9.6 8.4 - 10.3 mg/dL [facility] ALKALINE PHOSPHATASE 72 39 - 117 U/L [facility] TOTAL BILIRUBIN 0.3 0.0 - 1.2 mg/dL [facility] AST 19 0 - 37 U/L [facility] ALT 12 0 - 40 U/L [facility] GLOBULIN 3.1 1 - 4.8 g/dL [facility] EGFR 98 >59 mL/min/1.7 3m2 [facility] Comment:Estimated glomerular filtration rate calculated using the CKD-EPI refit equation. ANION GAP 14 10 - 20 mmol/L [facility] Blood 09/17/2024 9:15 AM EDT 09/17/2024 9:21 AM EDT [facility] LAB BLOOD ORDERABLES Final Result [address] [address] * 25-OH vitamin D (09/17/2024 9:15 AM EDT) 25 OH VIT D (TOTAL) 32 30 - 60 ng/mL [facility] Blood 09/17/2024 9:15 AM EDT 09/17/2024 9:21 AM EDT Katiuska Anaya Sim [facility] LAB BLOOD ORDERABLES Final Result [facility] [address] [place] [address] * (ABNORMAL) CBC and differential (09/17/2024 9:15 AM EDT) WBC 5.89 4.00 - 11.00 K/uL [facility] RBC 4.26 4.00 - 5.20 M/uL [facility] HGB 12.6 12.0 - 16.0 g/dL [facility] HCT 40.6 36.0 - 46.0 % [facility] PLT 281 150 - 450 K/uL [facility] MCV 95.3 80.0 - 100.0 fL [facility] MCH 29.6 27.0 - 31.0 pg [facility] MCHC 31.0(L) 32.0 - 36.0 g/dL [facility] RDW 13.8 11.5 - 14.5 % [facility] MPV 10.8 8.4 - 12.0 fL [facility] NRBC 0.00 0.00 /100 WBCs [facility] ABSOLUTE NRBC 0.00 0.00 K/uL [facility] DIFF METHOD Auto [facility] NEUTS 54.6 48.0 - 76.0 % [facility] LYMPHS 34.0 18.0 - 41.0 % [facility] MONOS 6.3 4.0 - 11.0 % [facility] EOS 4.2 0.0 - 5.0 % [facility] BASOS 0.7 0.0 - 1.5 % [facility] Granulocytes, immature (%) 0.2 0.0 - 0.9 % [facility] ABSOLUTE NEUTS 3.22 1.92 - 7.60 K/uL [facility] ABSOLUTE LYMPHS 2.00 0.72 - 4.10 K/uL [facility] ABSOLUTE MONOS 0.37 0.16 - 1.10 K/uL [facility] ABSOLUTE EOS 0.25 0.00 - 0.50 K/uL [facility] ABSOLUTE BASOS 0.04 0.00 - 0.15 K/uL [facility] Granulocytes, immature 0.01 0.00 - 0.09 K/uL [facility] Blood 09/17/2024 9:15 AM EDT 09/17/2024 9:21 AM EDT [facility] LAB BLOOD ORDERABLES Final Result Performing Organization Address City/[facility]/ZIP Co de Phone Number [address] [address] * (ABNORMAL) Antinuclear antibody (THOMAS) (09/17/2024 9:15 AM EDT) THOMAS SCREEN ON HEP 2 Positive(A ) Negative [facility] Comment:An THOMAS Titer has bee n reflexed. The results will follow. Blood 09/17/2024 9:15 AM EDT 09/17/2024 9:21 AM EDT [facility] LAB BLOOD ORDERABLES Final Result Performing Organization Address [facility] Co de Phone Number [address] [address] * TSH (09/17/2024 9:15 AM EDT) TSH 0.59 0.27 - 4.20 uIU/mL [facility] Blood 09/17/2024 9:15 AM EDT 09/17/2024 9:21 AM EDT [facility] LAB BLOOD ORDERABLES Final Result Performing Organization Address [facility] Co de Phone Number [address] [address] * Vitamin B12 (09/17/2024 9:15 AM EDT) VITAMIN B12 607 232 - 1,245 pg/mL [facility] Blood 09/17/2024 9:15 AM EDT 09/17/2024 9:21 AM EDT Result [facility] LAB BLOOD ORDERABLES Final Result Performing Organization Address [facility] Co de Phone Number [address] [address] * Lipid panel (09/17/2024 9:15 AM EDT) HDL 48 mg/dL [facility] Comment: Interpretation <40 mg/dL: Low HDL cholesterol (major risk factor for CHD) Greater than or equal to 60 mg/dL: High HDL cholesterol ( negative risk factor for CHD) HDL - cholesterol is affected by a number of factors, e.g. smoking, excerise, hormones, sex and age. CHOLESTEROL 171 0 - 240 mg/dL [facility] TRIGLYCERIDES 99 30 - 160 mg/dL [facility] LDL 103 50 - 129 mg/dL [facility] Comment: LDL levels in terms of risk for coronary heart disease: <100 mg/dL: Optimal 100-129 mg/dL: Near or above optimal 130-159 mg/dL: Borderline high 160-189 mg/dL: High >190 mg/dL: Very High CARDIAC RISK RATIO 3.6 3.3 - 4.4 [facility] Blood 09/17/2024 9:15 AM EDT 09/17/2024 9:22 AM EDT [facility] LAB BLOOD ORDERABLES Final Result Performing Organization Address [facility] Co de Phone Number [address] [address] * HM MAMMOGRAPHY FOR RESULT ENTRY ONLY (07/05/2018) Sonia Farrell MD HEALTH MAINTENANCE F inal Result * HM PAP SMEAR FOR RESULT ENTRY ONLY (01/07/2016) Naa Canales MD HEALTH MAINTENANCE Final Result from Last 3 Months or Most Recently Relevant to Health Maintenance Insurance [address] [place], [place] [address] [place] [address] [place] [place] [address] [facility] [address] [place] [place] [address] [place] [address] Advance Directives For more information, please contact: [phone] (9AM - 5PM [facility], Tuesday-Tuesday) * Full Code (Latest Code Status on File) Date Activated Date Inactivated Comments 05/16/2020 12:44 PM Question Answer Comments Code Status Confirmed With: Patient Care Teams Label Maker Relationship Specialty Start Date End Date Katiuska Montemayor FNP [address] [place] [address] PCP - General Nurse Practitioner 03/20/24 Naa Canales MD [address] [place] [address] Historical LMR Provider 12/15/16 Additional Source Comments The information contained in this document represents components of the legal health record. It is not the complete legal health record.[facility]
--- OUTSIDE RECORDS SUMMARY | 2024-10-10 13:54 | XMS_ITS | Encounter Summary ---
Author Organization [employer] Address [address] [place] [address] Care Team Providers Care Hat Brusher Machine Name Role Phone [facility] Primary Care Provider [phone] Encounter Details Date Type Department Care Team (Late st Contact Info) Description 09/20/2023 Orders Only [facility] [address] [place] [address] [place], [place], [facility] [address] [place] [address] Social History Tobacco Use Types Packs/Day Years Used Date Smoking Tobacco: Never Smokeless Tobacco: Never Alcohol Use Standard Drinks/Week Comments Yes 2 (1 standard drink = 0.6 oz pur e alcohol) Housing Stability Answer Date Recorded What is your housing situation today? I have shayla gasca 09/14/[address] you li ve. Do you have problems with any of the following? None of the above 09/14/2023 Food Insecurity Answer Date Recorded Within the past 12 months, y ou worried that your food would run out before you got money to buy more: Never True 09/14/2023 Within the past 12 months,th e food you bought just didn't last and you didn't have enough money to get more: Never True Transportation Answer Date Recorded In the past 12 months, has l ack of transportation kept you from medical appts, meetings, work or from getting things needed for daily living? No 09/14/2023 Utilities Answer Date Recorded In the past 12 months, has t he electric, gas, oil or water company threatened to shut off services in your home? No 09/14/2023 Depression Answer Date Recorded Patient Health Questionnaire-2 Score 1 09/14/2023 Comments Unknown Sex and Gender Information Value Date Recorded Sex Assigned at Female 08/25/2023 1:58 PM EDT Legal Sex Female 11:23 AM EDT Gender Identity Female 08/25/2023 1:58 PM EDT Sexual Orientation Straight 08/25/2023 2: 10 PM EDT documented as of this encounter Plan of Treatment Upcoming Encounters Date Type Department Care Team (Late st Contact Info) Description 11/14/2024 9:40 AM EDT Office Visit [facility] [address] [place] [address] [facility] [address] [place] [address] documented as of this encounter Procedures Procedure Name Priority Date/Time Associated Diagnosis Comments LIPID PANEL, STANDARD Routine 11/10/2022 11:33 AM EDT documented in this encounter Results * Lipid Panel, Standard (11/10/2022 11:33 AM EDT) Blood Venous blood specimen / Unknown [facility] LAB BLOOD ORDERABLES Gabrielle l Result documented in this encounter Visit Diagnoses Not on filedocumented in this encounter Care Teams Hat Brusher Machine Relationship Specialty Start Date End Date [facility] [address] [place] [address] PCP - General Family Medicine 08/25/23 documented as of this encounter
--- OUTSIDE RECORDS SUMMARY | 2024-10-10 13:54 | XMS_ITS | Referral Summary ---
Author Organization [facility] Address [address] [place] [address] Care Team Providers Care Chief Security Officer Name Role Phone Nehallilliana Katiuska Primary Care Provider [phone] Encounters Date Type Department Care Team Description 07/26/2024 Telephone [facility] [address] [place] [address] [phone] Roland Vivar MD 07/25/2024 Telephone [facility] [address] [place] [address] [phone] Telephone Intake, Staff PAC Appt Request - EstablishedDR. VIVAR from Last 3 Months Allergies No known active allergies Medications albuterol (PROAIR HFA,VENTOLIN HFA) 90 mcg inhaler Inhale 2 puffs by mouth every 6 hours as needed. Active atorvastatin (LIPITOR) 10 mg tablet SMARTSI Tablet(s) By Mouth Daily Active FLUoxetine (PROzac) 40 mg capsule SMARTSI Capsule(s) By Mouth Daily Active levothyroxine (SYNTHROID, LEVOTHROID) 100 mcg tablet Take 100 mcg by mouth daily. 01/18/2024 Active omeprazole (PriLOSEC) 10 mg capsule Take 10 mg by mouth. 03/05/2024 Active Social History Tobacco Use Types Packs/Day Years Used Date Smoking Tobacco: Former Cigarettes Smokeless Tobacco: Never Tobacco Cessation:Counseling Given: Not Answered Alcohol Use Standard Drinks/Week Comments Yes 0 (1 standard drink = 0.6 oz pur e alcohol) occ Comments Unknown Sex and Gender Information Value Date Recorded Sex Assigned at Female 04/27/2024 2:02 PM EST Legal Sex Female 2:01 PM EST Gender Identity Female 04/27/2024 2:02 PM EST Sexual Orientation Straight 05/30/2024 9: 18 PM EDT Last Filed Vital Signs Vital Sign Reading Time Taken Comments Blood Pressure 131/85 05/31/2024 10:14 AM EDT Pulse 80 05/31/2024 10:14 AM EDT Temperature - - Respiratory Rate - - Oxygen Saturation - - Inhaled Oxygen Concentration - - Weight 68.1 kg (150 lb 3.2 oz) 05/31/2024 10:14 AM EDT Height 162.6 cm (5' 4 ) 05/31/2024 10:14 AM EDT Body Mass Index 25.78 05/31/2024 10:14 AM EDT Plan of Treatment Upcoming Encounters Date Type Department Care Team (Late st Contact Info) Description 11/27/2024 3:45 PM EDT Follow-Up [facility] [address] [place] [id number] Roland Vivar MD [address] [place] [phone] Insurance [employer] Care Teams Chief Security Officer Relationship Specialty Start Date End Date [place], [place] [address] [place] [address] [facility] - General 04/27/24
== END 2024-10-10 13:28 | disposition home or self-care (01) ==
LOC: HO.US 13:27
PROVIDERS: Visit Provider Surgery Vascular Surgery
DX: I83.11 Varicose veins of right lower extremity with inflammation (principal)
CPT/HCPCS: 93971

== ENCOUNTER → 2024-10-10 13:31 | Outpatient (BNV) | payer OTHER, SELFPAY | PROVIDERS: Visit Provider Radiology Diagnostic Radiology | DX: I83.11 Varicose veins of right lower extremity with inflammation (principal) | CPT/HCPCS: 93971 ==

== ENCOUNTER 2024-11-27 11:06 | Outpatient (AMB) | payer OTHER, SELFPAY ==
--- OUTSIDE RECORDS SUMMARY | 2024-11-23 09:40 | XMS_ITS | Encounter Summary ---
Author Organization [facility] Address [address] [place] [address] Care Team Providers Care Vibrating Screed Operator Name Role Phone Katiuska Montemayor Primary Care Provider [phone] Reason for Referral * Rehabilitation (Routine) - Authorized Specialty Diagnoses / Procedures Referred By Contact Referred To Contact Physical Medicine and Rehabilitation / Orthopaedic Surgery Diagnoses Spondylolisthesis of lumbar region Radiculopathy due to lumbar intervertebral disc disorder Marty Campbell MD [address] [place] [address] Phone: tel:[phone] fax:[phone] Marty Campbell MD [address] [place] [address] Phone: tel:[phone] fax:[phone] Referral ID Status Reason Start Date Expiration Date Visits Requested Visits Authorized [id number] Authorized Specialty Services Required 11/23/2024 12/23/2025 6 6 * Physical Therapy (Routine) - Pending Review Specialty Diagnoses / Procedures Referred By Contac t Referred To Contact Physical Therapy Diagnoses Spondylolisthesis of lumbar region Marty Campbell MD [address] [place] [address] Phone: tel: fax: Referral ID Status Reason Start Date Expiration Date Visits Requested Visits Authorized [id number] Pending Review Specialty Services Required 11/23/2024 12/24/2025 6 6 Reason for Visit * Reason Comments Pain New Patient * Consultation (Routine) - Pending Review Specialty Diagnoses / Procedures Referred By Gudelia t Referred To Contact Orthopaedic Surgery Diagnoses Spinal Stenosis_lumbar, MRI done at [facility] on 10/09, report in epic, no images, non wc/mva/ed/uc bonny with pt Katiuska Montemayor [address] [place] [address] Phone: tel: fax: [facility] [address] [place] [address] Phone: tel: fax: Referral ID Status Reason Start Date Expiration Date V isits Requested Visits Authorized [id number] Pending Review 10/22/2024 04/23/2026 6 6 Encounter Details Date Type Department Care Team (Latest Contact Info) Description 11/23/2024 9:40 AM EDT Office Visit [facility] [address] [place] [id number] Marty Campbell MD [address] [place] [phone] Spondylolisthesis of lumbar region (Primary Dx); Radiculopathy due to lumbar intervertebral disc disorder Social History Tobacco Use Types Packs/Day Years [...] PM EDT documented as of this encounter Last Filed Vital Signs Vital Sign Reading Time Taken Comments Blood Pressure 115/75 11/23/2024 9:40 AM EDT Pulse 87 11/23/2024 9:40 AM EDT Temperature - - Respiratory Rate - - Oxygen Saturation 95% 11/23/2024 9:40 AM EDT Inhaled Oxygen Concentration - - Weight 68 kg (150 lb) 11/23/2024 9:40 AM EDT Height 162.6 cm (5' 4 ) 11/23/2024 9:40 AM EDT Body Mass Index 25.75 11/23/2024 9:40 AM EDT documented in this encounter Progress Notes * Marty Campbell MD - 11/23/2024 9:40 AM EDT New Patient Physical Medicine and Rehabilitation Visit Referring Provider: Katiuska Montemayor [address] [place] [id number] CHIEF COMPLAINT: Chief Complaint Patient presents with Lower Back - Pain, New Patient CHART REVIEW: I reviewed the use of [employer] virtual scribing technology with the patient, and they consented to allowing an audio recording of the encounter for visit documentation purposes. History of Present Illness The patient presents for back pain, right leg pain, and knee pain. She has been experiencing back pain for the past 2 years, which initially presented as swelling in her right ankle. Despite consulting several doctors, the cause remained undiagnosed until a vein specialist identified reflux and a duplicate vein. A procedure was performed to remove one of the veins, which led to an improvement in her condition. However, she later developed pain and swelling in her left leg. She used compression stockings throughout the summer and was prescribed gabapentin and Celebrex for pain management. She also reports occasional left-sided hip pain, but it is less severe than the right-sided pain. She experiences intense pain in her hip that radiates down her leg, but does not report any associated tingling or numbness. She finds relief from the pain when sitting with her feet elevated. The painused to disrupt her sleep, but this has improved since starting gabapentin. She reports no foot weak ness. She has been practicing yoga for sciatica since 08/2024 and rates her worst pain as an 8 or 9out of 10. She has not received any exercise handouts from her doctor for her back. She reports no chronic medical conditions requiring blood thinners, low platelet count, or bleeding disorders. She is not allergic to contrast dye used in CT scans. She has a history of a stress fracture in her back, which was revealed on an MRI scan. She recalls a childhood incident where she hit a rock while going down a waterfall, resulting in intense pain, but she did not seek medical attention at the time. She has been experiencing knee pain for about 8 months, which is accompanied by heat and swelling. The pain extends to the back of her knee and is described as stabbing in nature. An orthopedic doctor diagnosed her with tendinitis and prescribed ibuprofen three times a day. This treatment alleviated her daytime pain, but she had to discontinue it due to stomach issues. Once she stopped the medication, the pain returned. She also reports tenderness in her hip and is unsure if her symptoms are related to tendinitis. Shehas not undergone physical therapy for her knees. INJECTION HISTORY: None prior Medications tried in the past: Gabapentin, Celebrex IMAGING /OTHER STUDIES: Bilateral hip x-ray report from [facility] 05/05/2021-images not available but the report states that there are no arthritic changes. The following images were independently visualized and interpreted. MRI of the lumbar spine from October 09, 2024 was personally visualized. This shows grade 1-2 anterolisthesis of L5 on S1. There is bilateral neuroforaminal narrowing which is severe at L5-S1. PAST MEDICAL HISTORY: Past Medical History: Diagnosis Date Disease of thyroid gland PAST SURGICAL HISTORY: Past Surgical History: Procedure Laterality Date HERNIA REPAIR SOCIAL HISTORY: Social History Tobacco Use Smoking status: Former Types: Cigarettes Smokeless tobacco: Never Vaping Use Vaping status: Never Used Substance Use Topics Alcohol use: Yes Comment: [facility] Drug use: Yes Types: Marijuana Comment: [facility] FAMILY HISTORY: No family history on file. ALLERGIES: No Known Allergies MEDICATION LIST Current Outpatient Medications Medication Sig Dispense Refill albuterol (PROAIR HFA,VENTOLIN HFA) 90 mcg inhaler Inhale 2 puffs by mouth every 6 hours as needed. atorvastatin (LIPITOR) 10 mg tablet SMARTSI Tablet(s) By Mouth Daily celecoxib (CeleBREX) 100 mg capsule Take 100 mg by mouth 2 times daily. FLUoxetine (PROzac) 40 mg capsule SMARTSI Capsule(s) By Mouth Daily gabapentin (NEURONTIN) 100 mg capsule TAKE 2 CAPSULES BY MOUTH IN THE MORNING AND 3 CAPSULES AT BEDTIME levothyroxine (SYNTHROID, LEVOTHROID) 100 mcg tablet Take 100 mcg by mouth daily. omeprazole (PriLOSEC) 10 mg capsule Take 10 mg by mouth. No current facility-administered medications for this visit. BP 115/75 Pulse 87 Ht 1.626 m (5' 4 ) Wt 68 kg (150 lb) SpO2 95% BMI 25.75 kg/m?? Pain Score: 2 Highest pain score: 9/10 PHYSICAL EXAM: General: Alert, in no apparent distress. HEENT: Normal sclerae Respiratory: No labored breathing Cardiovascular: No pitting edema in the extremities. Psychiatric: Pleasant and cooperative and answers questions appropriately. Integumentary: No rashes or sores are visualized. Musculoskeletal and neurological: Physical Exam Neurological: Grossly intact sensation, 5-/5 right EHL extension. Musculoskeletal - Right greater trochanter: Tenderness - IT band: Tenderness Other: Straight leg raise test is negative bilaterally. Symmetric reflexes in the patella and Achilles tendon. ASSESSMENT: Diagnoses and all orders for this visit: Spondylolisthesis of lumbar region - Ambulatory referral to Physical Therapy; Future - Ambulatory referral to Physical Medicine Rehab; Future Radiculopathy due to lumbar intervertebral disc disorder - Ambulatory referral to Physical Medicine Rehab; Future Assessment & Plan 1. Back pain: - The patient's back pain is likely due to severe disc degeneration at L5-S1 with a chronic pars fracture on both sides and subluxation between 25 to 50% of the vertebrae, as seen on MRI. This condition is causing nerve impingement, leading to leg pain. - Physical exam findings include tenderness over the right greater trochanter and IT band, normal sensation to light touch in both lower extremities, and symmetric reflexes in the patella and Achilles tendon. - An outside referral for physical therapy was provided, and she was encouraged to continue her yoga practice. If physical therapy and injections do not alleviate the pain, surgery may be considered. 2. Right leg pain: - The right leg pain is likely related to the nerve impingement from the lumbar spine issue. - The patient was advised to continue taking gabapentin at night and Celebrex as needed for pain management. Physical therapy and epidural steroid injections were recommended to alleviate the pain. - If these measures do not provide relief, surgery may be considered. - Non-surgical options such as cortisone injections, gabapentin, Celebrex, and physical therapy were discussed. She will be scheduled for right L5 transforaminal epidural steroid injection. The potential benefits and risks of epidural steroid injections were explained, including the possibility of i nfection, bleeding, and short-term side effects like hot flashes. The patient was informed that theinjection could provide temporary relief, lasting from 3 to 6 months or longer in some cases. 3. Knee pain: - The knee pain may be related to inflammation from a rheumatologic condition, as indicated by a positive THOMAS test. - The patient was advised to discuss this with her vice president of software development. - Physical therapy was recommended to address the tendon issues. If the vice president of software development deems it necessary, they may also prescribe physical therapy. Please note that portions of this note were created with voice recognition software. Please excuse any word selection errors, misspellings, or grammatical errors. Efforts were made to proofread and correct this note prior to signing. If there are any questions, please don't hesitate to contact the office. documented in this encounter Plan of Treatment Upcoming Encounters Date Type Department Care Team (Late st Contact Info) Description 01/08/2025 10:30 AM EST Office Visit [facility] [address] [place] [address] Keno Dealer: Linden Julien MD [address] [place] [address] Scheduled Referrals Name Type Priority Associated Diagnoses Orde r Schedule Ambulatory referral to Physical Therapy Outpatient Referral Routine Spondylolisthesis of lumbar region Expected: 11/23/2024, Expires: 12/23/2025 Ambulatory referral to Physical Medicine Rehab Outpatient Referral Routine Spondylolisthesis of lumbar region Radiculopathy due to lumbar intervertebral disc disorder Expected: 11/23/2024, Expires: 12/23/2025 documented as of this encounter Visit Diagnoses Diagnosis Spondylolisthesis of lumbar region- Primary Radiculopathy due to lumbar intervertebral disc disorder documented in this encounter Care Teams Vibrating Screed Operator Relationship Specialty Start Date End Date [facility] Katiuska [address] [place] [address] PCP - General 04/27/24 documented as of this encounter
[2024-11-27 11:09] VITALS: BMI 25.7
--- NOTE | 2024-11-27 11:09 | A.OFFVIS_ITS ---
Vital Signs 11/27/24 11:09 Height 5 ft 4 in Weight 150 lb BMI 25.7 Intake Visit Reasons: follow up 10/10/24 Intake Note: follow up 10/10/24, Pt states Right LE pain w/ swelling. Hx of Right GSV RFA 01/06/24 Preventive Medicine Physician Required: No Accompanied by: Self / Same As Patient Allergies No Known Allergies Allergy (Verified 11/27/24 11:11) HPI HPI follow up [facility] 10/10/24: Details: The patient is a 59-year-old female presenting with venous insufficiency. She reports noticing a discoloration on her leg where it hurts, which she finds unusual. She also experiences significant pain in her hips and back, suggesting a possible musculoskeletal component. An ultrasound of the right leg vein was performed, and an ablation was done, which showed no issues with the veins, indicating successful treatment. The patient has a known disc issue, confirmed by a recent MRI, which might be contributing to her symptoms. The patient experiences swelling in the leg when not taking anti-inflammatory medication, which alleviates the symptoms, suggesting a possible inflammatory or arthritic component. She is currently taking gabapentin for pain management, indicating a possible nerve-related issue. The patient has an upcoming appointment with a supervisor trust accounts due to a positive THOMAS test, which might indicate a rheumatologic condition. [facility] Medical History Hypothyroidism Social History Patient Tobacco Use Status: Never used Tobacco Review of Systems Const All systems reviewed & are unremarkable except as noted in HPI and below Reports no additional complaints ENT Reports Normal hearing present Card Denies chest pain, Denies chest pain at rest, Denies chest pain with activity and Denies pedal edema Resp Denies cough GI Denies abdominal pain Musc Denies abnormal gait, Denies muscle cramps and Denies radiating pain into limb Skin/Breast Denies skin ulcer and Denies wounds Neuro Reports Normal hearing present and Denies abnormal gait Psych Reports no additional complaints Physical Exam Vital Signs: BMI result Body Mass Index 25.7 Const General: cooperative, healthy appearing and comfortable Orientation/consciousness: oriented to person, oriented to place and oriented to time HEENT Head: Yes normal to inspection Neck Neck: Yes normal visual inspection Carotids: no bruits Chest Chest palpation & inspection: normal inspection of the chest Resp Effort & Inspection: normal respiratory effort and able to speak in complete sentences Auscultation: clear to auscultation bilaterally, no crackles, no rales, no rhonchi and no wheezes Cardio Rate: regular rate Rhythm: regular rhythm Heart sounds: S1 normal heart sound present and S2 normal heart sound present Bruits: no carotid bruits Peripheral pulses: Peripheral pulses 2+ throughout GI Inspection: Yes normal to inspection Skin Wounds: no wounds Hair: normal Neuro General: oriented to person, oriented to place and oriented to time Cranial nerves: Yes CN's II-XII intact bilaterally and Yes Normal hearing present Cognition (Neuro): normal cognition Motor exam (neuro): 5/5 motor strength present throughout Extrem Other: venous exam: No significant superficial varicosities or spider telangiectasias, minimal edema General: No clubbing, No cyanosis and No edema Psych Appearance: grossly normal Mental Status: mental status grossly normal Speech and movement: Normal speech and movement present Results Reviewed Results Reviewed: Venous insufficiency testing dated 10/10/2024 was negative Assessment & Plan Assessment & Plan (1) Varicose veins of right lower extremity with inflammation: Comment: 01/06/2024 - right great saphenous vein radiofrequency ablation Code(s): I83.11 - Varicose veins of right lower extremity with inflammation Category: Medical Plan: During the visit, we discussed that the patient's venous insufficiency has been successfully treated with ablation, and there are no further issues with the veins. We also explored the possibility of musculoskeletal and nerve-related pain, with the patient currently managing symptoms with anti-inflammatory medication and gabapentin. The patient is advised to follow up with a supervisor trust accounts due to a positive THOMAS test, which may indicate a rheumatologic condition. Plan Patient was informed and verbally consented to the use of an ambient scribe for clinic note documentation during this visit. Patient Instructions: - Continue taking anti-inflammatory medication as needed for pain relief. - Follow up with the supervisor trust accounts as scheduled for further evaluation of possible rheumatologic condition. - Monitor for any new symptoms or changes in current symptoms and reach out should there be any problems in the future Coding Level of Care Code Est Pt Level 4 (81327) Diagnoses Varicose veins of right lower extremity with inflammation I83.11
--- OUTSIDE RECORDS SUMMARY | 2024-11-27 12:34 | XMS_ITS | Encounter Summary ---
Author Organization [facility] Address [address] [facility] [address] [place] [address] Phone Care Team Providers Care Physicist [employer] Name Role Phone Naa Canales MD Unavailable [phone] Suzie Ramachandran MD Primary Care Provider + Miguel Angel Clemente MD Primary Care Provider [phone] [facility] Primary Care Provide r [facility] Primary Care Provide r Encounter Details Date Type Department Care Team (Late st Contact Info) Description 05/04/2021 Transcribe Orders Virtual Department [address] [place] [address] Suzie Ramachandran MD [address] [place] [phone] [email or web address] Breast screening (Primary Dx) Social History Tobacco Use Types Packs/Day Years Used Date Smoking Tobacco: Former Cigarettes 0.3 2 Smokeless Tobacco: Never Alcohol Use Standard Drinks/Week Comments Yes 2 (1 standard drink = 0.6 oz pur e alcohol) Comments No Sex and Gender Information Value Date Recorded Sex Assigned at Female 10/22/2024 12:12 PM EDT Legal Sex Female 9:43 PM EDT Gender Identity Female 10/22/2024 12:12 PM EDT Sexual Orientation Straight 10/22/2024 12 :12 PM EDT 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 Not on file Not o n file Not on file documented as of this encounter Plan of Treatment Not on file documented as of this encounter Visit Diagnoses Diagnosis Breast screening- Primary Breast screening, unspecified documented in this encounter Care Teams Physicist [employer] Relationship Specialty Start Date End Date Suzie Ramachandran MD [address] [place] [phone] PCP - General Family Medicine 03/03/20 06/07/23 Miguel Angel Clemente MD [address] [place] [phone] [email or web address] PCP - General Internal Medicine 06/08/23 [facility] [address] [place] [phone] PCP - General Nurse Practitioner 03/20/24 10/21/24 [facility] [address] [place] [phone] PCP - General Nurse Practitioner 10/22/24 Naa Canales MD [address] [place] [address] Historical LMR Provider 12/15/16 documented as of this encounter Additional Source Comments The information contained in this document represents components of the legal health record. It is not the complete legal health record.[facility]
--- OUTSIDE RECORDS SUMMARY | 2024-11-27 12:34 | XMS_ITS | Clinical Summary ---
Author Organization [facility] Address [address] [facility] [address] [place] [address] Phone Care Team Providers Care Men'S Custom Hair Piece Consultant Name Role Phone Naa Canales MD Unavailable [phone] Katiuska Montemayor [facility] Primary Care Provide r Allergies No known [...] (six) hours as needed for wheezing. Active yjpxtbm-L5-fjyi -copper-baldemar 325 mg-12.5 mcg -2.75 mg Tab [...] Encounters Date Type Department Care Team Description 10/12/2024 11:04 AM EDT - 10/12/2024 11:59 PM EDT Hospital Encounter [facility] [address] [place] [address] [place] [address] Katiuska Montemayor FNP Discharge Disposition: Home or Self Care 10/09/2024 3:54 PM EDT - 10/09/2024 11:59 PM EDT Hospital Encounter [address] [address] Katiuska Montemayor FNP Discharge Disposition: Home or Self Care 09/19/2024 Transcribe Orders Virtual Department [address] [place] [address] Katiuska Montemayor FNP Encounter for screening mammogram for malignant neoplasm of breast (Primary Dx) 09/18/2024 Procedure Pass [address] [address] 09/18/2024 Transcribe Orders Virtual Department [address] [place] [address] [facility] Right sided sciatica (Primary Dx) 09/17/2024 9:09 AM EDT - 09/17/2024 11:59 PM EDT Hospital Encounter [facility] [address] [place] [address] Katiuska Montemayor FNP Discharge Disposition: Home or Self Care 09/17/2024 Transcribe Orders [facility] [address] [place] [address] [facility] Tick bite of head, unspecified part, [...] out of work due to changes at [employer]. Not on file Not o n file [...] 07/05/2018, 12/27/2014 PAP SMEAR 01/06/2021 01/07/2016, 12/23/2015 INFLUENZA VACCINE (#1) 2024 , 12/25/2022, 03/02/2022, Additional history exists Adult Td,Tdap Booster 07/28/2025 07/29/2015 TSH LEVEL 09/17/2025 09/17/2024 SCREENING FOR DIABETES 09/18/2027 09/17/2024 LIPID PANEL 09/17/2029 09/17/2024, 07/02/2024, 12/19/2017 RSV VACCINE (1 - 1-dose 75+ [...] this topic Medical Devices Implanted Type Area [employer] Nurse Device Identifier Shelf Expiration Date Model / Serial / Lot Intrauterine Device Intrauterine Device Nodata NODATA Left: Breast Description:Marker Procedures Procedure Name Priority Date/Time Associated Diagnosis Comments SEDIMENTATION RATE (ESR) Routine 10/12/2024 11:10 AM EDT Tick bite of head, unspecified part, initial encounter Positive THOMAS (antinuclear antibody) CCP IGG ANTIBODIES Routine 10/12/2024 11 :10 AM EDT Tick bite of head, unspecified part, initial encounter Positive THOMAS (antinuclear antibody) C-REACTIVE PROTEIN Routine 10/12/2024 11 :10 AM EDT Tick bite of head, unspecified part, initial encounter Positive THOMAS (antinuclear antibody) Ehrlichia/anaplasma PCR Routine 10/12/2024 11:10 AM EDT Tick bite of head, unspecified part, initial encounter Positive THOMAS (antinuclear antibody) MRI LUMBAR SPINE (NEURO) WITHOUT CONTRAST Routine 10/09/2024 4:37 PM EDT Right sided sciatica Antinuclear antibody, titer and pattern Routine 09/17/2024 [...] lipoid disorders BABESIA SPECIES PCR Routine 09/17/2024 9 :15 AM EDT Tick bite of head, unspecified part, initial encounter Fatigue, unspecified type Screening for lipoid disorders MAMMOGRAPHY Routine 07/05/2018 PAP SMEAR FOR RESULT ENTRY ONLY Routine 01/07/2016 from Last 3 Months or Most Recently Relevant to Health Maintenance Results * Ehrlichia/anaplasma PCR (10/12/2024 11:10 AM EDT) ANAPLASMA PHAGOCYTO Negative Negative [facility] DPT OF LAB MED AND PAT+ EHRLICHIA CHAFFEENS Negative Negative [facility] DPT OF LAB MED AND PAT+ EHRL EWINGII/CANIS Negative Negative [facility] DPT OF LAB MED AND PAT+ EHRL MURIS-LIKE Negative Negative [facility] DPT OF LAB MED AND PAT+ Comment: (NOTE) ADDITIONAL INFORMATION This test was developed and its performance characteristics determined by [facility] in a manner consistent with CLIA requirements. This test has not been cleared or approved by the U.S. Food and Drug Administration. Blood 10/12/2024 11:1 0 AM EDT 10/12/2024 11:15 AM EDT [facility] LAB BLOOD ORDERABLES Final Result [facility] DPT OF LAB MED AND PAT+ [address] [place] [address] * CCP IgG antibodies (10/12/2024 11:10 AM EDT) ANTI-CCP IGG <8 0 - 16 U/mL [facility] Blood 10/12/2024 11:1 0 AM EDT 10/12/2024 11:15 AM EDT [facility] LAB BLOOD ORDERABLES Final Result Performing Organization Address City/[facility]/ZIP Co de Phone Number [facility] [address] [place] [address] * Sedimentation rate (ESR) (10/12/2024 11:10 AM EDT) ESR 6 0 - 30 mm/h [facility] Blood 10/12/2024 11:1 0 AM EDT 10/12/2024 11:14 AM EDT [facility] LAB BLOOD ORDERABLES Final Result Performing Organization Address City/[facility]/ZIP Co de Phone Number [facility] [address] [place] [address] * C-Reactive Protein (10/12/2024 11:10 AM EDT) C REACTIVE PROTEIN <3.0 0.0 - 4.0 mg/L [facility] Blood 10/12/2024 11:1 0 AM EDT 10/12/2024 11:14 AM EDT Katiuska Calvertlilliana OSTEOPATHIC NEUROLOGIST LAB BLOOD ORDERABLES Final Result [facility] [address] [place] [address] * MRI LUMBAR SPINE (NEURO) WITHOUT CONTRAST (10/09/2024 4:37 PM EDT) Anatomical Region Laterality Modality L-spine Magnetic Resonan ce 10/10/2024 3:14 PM EDT Impressions 10/10/2024 3:29 PM EDT 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 There is associated severe bilateral L5/S1 foraminal stenosis. Narrative 10/10/2024 3:29 PM EDT MRI LUMBAR SPINE (NEURO) WITHOUT CONTRAST Referring clinician's provided indication for this examination in Epic: Outside Radiology Order; severe R leg pain and lower ext weakness TECHNIQUE: MRI LUMBAR SPINE (NEURO) WITHOUT CONTRAST Multi-sequence, multi-planar MRI of the lumbar spine was performed without intravenous contrast. COMPARISON: None FINDINGS: LUMBAR SPINE: For the purposes of this dictation the last rib bearing vertebral body will be termed T12 with L5/S1 located on axial series 6 image 4. Alignment and Vertebrae: There is bilateral L5 spondylolysis with 8 mm anterolisthesis of L5 on S1. No compression fracture. Marrow: No bone marrow replacing lesion. Discs and Endplates: There is near complete loss of the normal disc height at L5/S1 with disc uncovering posteriorly. There is edema within the L5 and S1 vertebral bodies. Conus: Normal. Soft Tissues: Normal. No prevertebral edema. Other Findings: None. Findings by level: T12-L1: Minimal posterior disc bulge. No spinal or foraminal stenosis. L1-L2: Normal. No spinal or foraminal stenosis. L2-L3: Minimal posterior disc bulge and facet arthrosis. No spinal or foraminal stenosis. L3-L4: Mild posterior disc bulge slightly eccentric to the left and facet arthrosis. No spinal or foraminal stenosis. L4-L5: Mild posterior disc bulge and facet arthrosis. No spinal or foraminal stenosis. L5-S1: Severe loss of disc height and uncovering of the disc. No associated disc bulge or herniation. Bilateral facet arthrosis. No spinal canal stenosis. Severe bilateral foraminal stenosis. Procedure Note Irish Pool MD - 10/10/2024 MRI LUMBAR SPINE (NEURO) WITHOUT CONTRAST Referring clinician's provided indication for this examination in Epic:Outside Radiology Order; severe R leg pain and lower ext weakness TECHNIQUE: MRI LUMBAR SPINE (NEURO) WITHOUT CONTRAST Multi-sequence, multi-planar MRI of the lumbar spine was performed withoutintravenous contrast. COMPARISON: None FINDINGS: LUMBAR SPINE: For the purposes of this dictation the last rib bearing vertebral bodywill be termed T12 with L5/S1 located on axial series 6 image 4. Alignment and Vertebrae: There is bilateral L5 spondylolysis with 8 mmanterolisthesis of L5 on S1. No compression fracture. Marrow: No bone marrow replacing lesion. Discs and Endplates: There is near complete loss of the normal disc heightat L5/S1 with disc uncovering posteriorly. There is edema within the L5and S1 vertebral bodies. Conus: Normal. Soft Tissues: Normal. No prevertebral edema. Other Findings: None. Findings by level: T12-L1: Minimal posterior disc bulge. No spinal or foraminal stenosis. L1-L2: Normal. No spinal or foraminal stenosis. L2-L3: Minimal posterior disc bulge and facet arthrosis. No spinal orforaminal stenosis. L3-L4: Mild posterior disc bulge slightly eccentric to the left and facetarthrosis. No spinal or foraminal stenosis. L4-L5: Mild posterior disc bulge and facet arthrosis. No spinal orforaminal stenosis. L5-S1: Severe loss of disc height and uncovering of the disc. Noassociated disc bulge or herniation. Bilateral facet arthrosis. No spinalcanal stenosis. Severe bilateral foraminal stenosis. 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 There isassociated severe bilateral L5/S1 foraminal stenosis. [facility] IM MR XSPECIALTY Fin al Result * Antinuclear antibody, titer and pattern (09/17/2024 9:15 AM EDT) Pathologist [facility] THOMAS TITER 1:160 Nucleolar [facility] 09/17/2024 9:15 AM EDT 09/17/2024 9:21 AM EDT [facility] LAB BLOOD ORDERABLES Final Result Performing Organization Address [facility]/ZIP Co de Phone Number [facility] [address] [place] [address] * Babesia species PCR (09/17/2024 9:15 AM EDT) [facility] [address] B.Microti PCR Negative Negative [facility] DPT OF LAB MED AND PAT+ B.Duncani PCR Negative Negative [facility] DPT OF LAB MED AND PAT+ B.Divergens/MO-1 PCR Negative Negative [facility] DPT OF LAB MED AND PAT+ Comment: (NOTE) ADDITIONAL INFORMATION This test was developed and its performance characteristics determined by [facility] in a manner consistent with CLIA requirements. This test has not been cleared or approved by the U.S. Food and Drug Administration. Blood 09/17/2024 9:15 AM EDT 09/17/2024 9:21 AM EDT [facility] LAB BLOOD ORDERABLES Final Result Performing Organization Address [facility]/ZIP Co de Phone Number [facility] DPT OF LAB MED AND PAT+ [address] [place] [address] * Lyme Screen with Reflex to Immunoblot, Blood (09/17/2024 9:15 AM EDT) Pathologist [facility] Lyme AB IgG Negative Negative [facility] Lyme AB IgM Negative Negative [facility] Blood 09/17/2024 9:15 AM EDT 09/17/2024 9:21 AM EDT [facility] LAB BLOOD ORDERABLES Final Result [address] [address] * Comprehensive metabolic panel (09/17/2024 9:15 AM EDT) SODIUM 142 133 - 146 mmol/L [facility] POTASSIUM 4.3 3.3 - 5.1 mmol/L [facility] CHLORIDE 106 96 - 108 mmol/L [facility] CO2 26 21 - 35 mmol/L [facility] BUN 15 6 - 19 mg/dL [facility] CREATININE 0.70 0.5 - 1.5 mg/dL [facility] GLUCOSE 95 70 - 99 mg/dL [facility] ALBUMIN 4.1 3.9 - 4.8 g/dL [facility] TOTAL PROTEIN 7.2 6.5 - 8.0 g/dL [facility] CALCIUM 9.6 8.4 - 10.3 mg/dL [facility] ALKALINE PHOSPHATASE 72 39 - 117 U/L [facility] TOTAL BILIRUBIN 0.3 0.0 - 1.2 mg/dL [facility] AST 19 0 - 37 U/L [facility] ALT 12 0 - 40 U/L [facility] GLOBULIN 3.1 1 - 4.8 g/dL [facility] EGFR 98 >59 mL/min/1.7 3m2 [facility] Comment:Estimated glomerular filtration rate calculated using the CKD-EPI refit equation. ANION GAP 14 10 - 20 mmol/L [facility] Blood 09/17/2024 9:15 AM EDT 09/17/2024 9:21 AM EDT [facility] LAB BLOOD ORDERABLES Final Result [address] [address] * 25-OH vitamin D (09/17/2024 9:15 AM EDT) 25 OH VIT D (TOTAL) 32 30 - 60 ng/mL [facility] Blood 09/17/2024 9:15 AM EDT 09/17/2024 9:21 AM EDT [facility] Anaya Sim [facility] LAB BLOOD ORDERABLES Final Result [facility] [address] [place] [address] * (ABNORMAL) CBC and differential (09/17/2024 9:15 AM EDT) WBC 5.89 4.00 - 11.00 K/uL [facility] RBC 4.26 4.00 - 5.20 M/uL [facility] HGB 12.6 12.0 - 16.0 g/dL [facility] HCT 40.6 36.0 - 46.0 % [facility] PLT 281 150 - 450 K/uL [facility] MCV 95.3 80.0 - 100.0 fL [facility] MCH 29.6 27.0 - 31.0 pg [facility] MCHC 31.0(L) 32.0 - 36.0 g/dL [facility] RDW 13.8 11.5 - 14.5 % [facility] MPV 10.8 8.4 - 12.0 fL [facility] NRBC 0.00 0.00 /100 WBCs [facility] ABSOLUTE NRBC 0.00 0.00 K/uL [facility] DIFF METHOD Auto [facility] NEUTS 54.6 48.0 - 76.0 % [facility] LYMPHS 34.0 18.0 - 41.0 % [facility] MONOS 6.3 4.0 - 11.0 % [facility] EOS 4.2 0.0 - 5.0 % [facility] BASOS 0.7 0.0 - 1.5 % [facility] Granulocytes, immature (%) 0.2 0.0 - 0.9 % [facility] ABSOLUTE NEUTS 3.22 1.92 - 7.60 K/uL [facility] ABSOLUTE LYMPHS 2.00 0.72 - 4.10 K/uL [facility] ABSOLUTE MONOS 0.37 0.16 - 1.10 K/uL [facility] ABSOLUTE EOS 0.25 0.00 - 0.50 K/uL [facility] ABSOLUTE BASOS 0.04 0.00 - 0.15 K/uL [facility] Granulocytes, immature 0.01 0.00 - 0.09 K/uL [facility] Blood 09/17/2024 9:15 AM EDT 09/17/2024 9:21 AM EDT [facility] LAB BLOOD ORDERABLES Final Result Performing Organization Address [facility]/ZIP Co de Phone Number [address] [address] * (ABNORMAL) Antinuclear antibody (THOMAS) (09/17/2024 9:15 AM EDT) Pathologist [facility] THOMAS SCREEN ON HEP 2 Positive(A ) Negative [facility] Comment:An THOMAS Titer has bee n reflexed. The results will follow. Blood 09/17/2024 9:15 AM EDT 09/17/2024 9:21 AM EDT [facility] LAB BLOOD ORDERABLES Final Result Performing Organization Address [facility] de Phone Number [address] [address] * TSH (09/17/2024 9:15 AM EDT) Pathologist [facility] TSH 0.59 0.27 - 4.20 uIU/mL [facility] Blood 09/17/2024 9:15 AM EDT 09/17/2024 9:21 AM EDT [facility] LAB BLOOD ORDERABLES Final Result Performing Organization Address [facility] Co de Phone Number [address] [address] * Vitamin B12 (09/17/2024 9:15 AM EDT) Pathologist [facility] VITAMIN B12 607 232 - 1,245 pg/mL [facility] Blood 09/17/2024 9:15 AM EDT 09/17/2024 9:21 AM EDT [facility] LAB BLOOD ORDERABLES Final Result Performing Organization Address [facility] Co de Phone Number [address] [address] * Lipid panel (09/17/2024 9:15 AM EDT) HDL 48 mg/dL [facility] Comment: Interpretation <40 mg/dL: Low HDL cholesterol (major risk factor for CHD) Greater than or equal to 60 mg/dL: High HDL cholesterol ( negative risk factor for CHD) HDL - cholesterol is affected by a number of factors, e.g. smoking, excerise, hormones, sex and age. CHOLESTEROL 171 0 - 240 mg/dL [facility] TRIGLYCERIDES 99 30 - 160 mg/dL [facility] LDL 103 50 - 129 mg/dL [facility] Comment: LDL levels in terms of risk for coronary heart disease: <100 mg/dL: Optimal 100-129 mg/dL: Near or above optimal 130-159 mg/dL: Borderline high 160-189 mg/dL: High >190 mg/dL: Very High CARDIAC RISK RATIO 3.6 3.3 - 4.4 C [facility] Blood 09/17/2024 9:15 AM EDT 09/17/2024 9:22 AM EDT [facility] LAB BLOOD ORDERABLES Final Result Performing Organization Address [facility]/ZIP Co de Phone Number [address] [address] * HM MAMMOGRAPHY FOR RESULT ENTRY ONLY (07/05/2018) Sonia Farrell MD HEALTH MAINTENANCE F inal Result * HM PAP SMEAR FOR RESULT ENTRY ONLY (01/07/2016) Naa Canales MD HEALTH MAINTENANCE Final Result from Last 3 Months or Most Recently Relevant to Health Maintenance Insurance [facility] [employer] Advance Directives For more information, please contact: [phone] (9AM - 5PM [place], Tuesday-Tuesday) * Full Code (Latest Code Status on File) Date Activated Date Inactivated Comments 05/16/2020 12:44 PM Question Answer Comments Code Status Confirmed With: Patient Care Teams Men'S Custom Hair Piece Consultant Relationship Specialty Start Date End Date Katiuska Montemayor FNP [address] [place] [address] PCP - General Nurse Practitioner 10/22/24 Naa Canales MD [address] [place] [address] Historical LMR Provider 12/15/16 Additional Source Comments The information contained in this document represents components of the legal health record. It is not the complete legal health record.[facility]
--- OUTSIDE RECORDS SUMMARY | 2024-11-27 12:34 | XMS_ITS | Encounter Summary ---
Author Organization [facility] Address [address] [place] [address] Care Team Providers Care Supervisor Painting Name Role Phone Sim Katiuska Primary Care Provider [phone] Encounter Details Date Type Department Care Team (Late st Contact Info) Description 11/01/2024 Telephone [facility] [address] [place] [address] Molding Line Assistant: Carli Castro MD [address] [place] [address] Social History Tobacco Use Types Packs/Day Years [...] PM EDT documented as of this encounter Miscellaneous Notes * Telephone Encounter - Ksenia Pro - 11/01/2024 11:32 AM EDT Please review documented in this encounter Plan of Treatment Upcoming Encounters Date Type Department Care Team (Late st Contact Info) Description 01/08/2025 10:30 AM EST Office Visit [facility] [address] [place] [address] Molding Line Assistant: Linden Julien MD [address] [place] [address] documented as of this encounter Visit Diagnoses Not on filedocumented in this encounter Care Teams Supervisor Painting Relationship Specialty Start Date End Date [place], [place] [address] [place] [address] PCP - General 04/27/24 documented as of this encounter
--- OUTSIDE RECORDS SUMMARY | 2024-11-27 12:34 | XMS_ITS | Encounter Summary ---
Author Organization [facility] Address [address] [facility] [address] [place] [address] Phone Care Team Providers Care Zoo Director Name Role Phone Dagmar Resendiz NP Unavailable [phone] Shad Bella MD Unavailable [phone] Naa Canales MD Unavailable [phone] Suzie Ramachandran MD Primary Care Provider + Miguel Angel Clemente MD Primary Care Provider [phone] [facility] Primary Care Provide r [facility] Primary Care Provide r Encounter Details Date Type Department Care Team (Late st Contact Info) Description 12/12/2020 Transcribe Orders Virtual Department [address] [place] [address] Yang Venegas PA [address] [place] [address] [email or web address] Pain in left upper arm (Primary Dx) Social History Tobacco Use Types [...] of work due to changes at [employer]. Not on file Not o n file Not on file documented as of this encounter Plan of Treatment Not on file documented as of this encounter Visit Diagnoses Diagnosis Pain in left upper arm- Primary documented in this encounter Care Teams Zoo Director Relationship Specialty Start Date End Date Suzie Ramachandran MD [address] [place] [address] PCP - General Family Medicine 03/03/20 06/07/23 Miguel Angel Clemente MD [address] [place] [address] [email or web address] PCP - General Internal Medicine 06/08/23 [facility]24 [facility] [address] [place] [address] PCP - General Nurse Practitioner 03/20/24 10/21/24 [facility] [address] [place] [address] PCP - General Nurse Practitioner 10/22/24 Dagmar Resendiz NP [address] [place] [address] Historical LMR Provider 12/15/16 2 Shad Bella MD [address] [place] [address] Historical LMR Provider 12/15/16 03/07/21 Naa Canales MD [address] [place] [address] Historical LMR Provider 12/15/16 documented as of this encounter Additional Source Comments The information contained in this document represents components of the legal health record. It is not the complete legal health record.[facility]
--- OUTSIDE RECORDS SUMMARY | 2024-11-27 12:34 | XMS_ITS | Encounter Summary ---
Author Organization [facility] Address [address] [place] [address] Phone Care Team Providers Care Slip Maker Name Role Phone Naa Canales MD Unavailable [phone] Suzie Ramachandran MD Primary Care Provider + Miguel Angel Clemente MD Primary Care Provider +[phone]- [phone] [facility] Primary Care Provide r [facility] Primary Care Provide r Encounter Details Date Type Department Care Team (Latest Contact Info) Description 11/05/2022 Transcribe Orders Virtual Department [address] [place] [address] David Mitchell, DO [address] [facility] [place], [place] [id number] [email or web address] Pain in right lower leg (Primary Dx) Social History Tobacco Use Types [...] out of work due to changes at [employer]. Not on file Not o n file Not on file documented as of this encounter Plan of Treatment Not on file documented as of this encounter Results * XR Tibia Fibula 2 Views (Right) (11/10/2022 1:05 PM EDT) Anatomical Region Laterality Modality Leg Right Computed Radiogr aphy 11/10/2022 11:2 4 PM EDT Impressions 11/10/2022 11:29 PM EDT No acute osseous abnormality or significant degenerative change. Narrative 11/10/2022 11:29 PM EDT XR TIBIA FIBULA 2 VIEWS (RIGHT) COMPARISON: None FINDINGS: No fracture. Normal alignment. No lytic or blastic lesion. Visualized portion of the knee and ankle appear normal. No soft tissue swelling. Procedure Note Flynn Leal MD - 11/10/2022 XR TIBIA FIBULA 2 VIEWS (RIGHT) COMPARISON: None FINDINGS: No fracture. Normal alignment. No lytic or blastic lesion. Visualizedportion of the knee and ankle appear normal. No soft tissue swelling. IMPRESSION: No acute osseous abnormality or significant degenerative change. us Paigeva Stephen DO IMG XR LOWER EXTREMITY Final R esult documented in this encounter Visit Diagnoses Diagnosis Pain in right lower leg- Primary Pain in right lower leg documented in this encounter Care Teams Slip Maker Relationship Specialty Start Date End Date Suzie Ramachandran MD [address] [place] [address] [email or web address] PCP - General Family Medicine 03/03/20 06/07/23 Miguel Angel Clemente MD [address] [place] [address] [email or web address] PCP - General Internal Medicine 06/08/23 03/19/24 Katiuska Montemayor FNP [address] [place] [address] PCP - General Nurse Practitioner 03/20/24 10/21/24 Katiuska Montemayor FNP [address] [place] [address] PCP - General Nurse Practitioner 10/22/24 Naa Canales MD [address] [place] [address] Historical LMR Provider 12/15/16 documented as of this encounter Additional Source Comments The information contained in this document represents components of the legal health record. It is not the complete legal health record.[facility]
--- OUTSIDE RECORDS SUMMARY | 2024-11-27 12:34 | XMS_ITS | Encounter Summary ---
Author Organization [facility] Address [address] [place] [address] Phone Care Team Providers Care Director Of Kids Name Role Phone Naa Canales MD Unavailable [phone] Suzie Ramachandran MD Primary Care Provider + Miguel Angel Clemente MD Primary Care Provider [phone] [facility] Primary Care Provide r [facility] Primary Care Provide r Encounter Details Date Type Department Care Team (Late st Contact Info) Description 05/05/2021 Ancillary Orders Virtual Department [address] [place] [address] Yang Venegas PA [address] [place] [address] [email or web address] Social History Tobacco Use Types Packs/Day Years [...] out of work due to changes at [employer]. Not on file Not o n file Not on file documented as of this encounter Plan of Treatment Not on file documented as of this encounter Results * XR PELVIS AP PLUS FROG OR OUTLET 2 VIEWS (05/05/2021 3:44 PM EST) Anatomical Region Laterality Modality Hip, Pelvis Computed Radiogr aphy 05/05/2021 4:01 PM EST Impressions 05/05/2021 4:02 PM EST Unremarkable plain film appearance of the pelvis and hips. POS [id number] Narrative 05/05/2021 4:02 PM EST AP and frog-lateral pelvis, 2 views No comparison No arthritic changes. No evidence of trauma, tumor or avascular necrosis. SI joints and symphysis pubis unremarkable. No significant soft tissue calcifications. Procedure Note Bradley Weiner MD - 05/05/2021 AP and frog-lateral pelvis, 2 views No comparison No arthritic changes. No evidence of trauma, tumor or avascular necrosis. SI joints and symphysis pubis unremarkable. No significant soft tissue calcifications. IMPRESSION: Unremarkable plain film appearance of the pelvis and hips. POS [id number] Yang GANNON IMG XR PELVIS Final Result documented in this encounter Visit Diagnoses Diagnosis Hip pain Pain in joint, pelvic region and thigh Hip pain Pain in joint, pelvic region and thigh documented in this encounter Care Teams Director Of Kids Relationship Specialty Start Date End Date Suzie Ramachandran MD [address] [place] [address] [email or web address] PCP - General Family Medicine 03/03/20 06/07/23 Miguel Angel Clemente MD [address] [place] [address] [email or web address] PCP - General Internal Medicine 06/08/23 03/19/24 Katiuska Montemayor FNP [address] [place] [address] PCP - General Nurse Practitioner 03/20/24 10/21/24 [facility] [address] [place] [address] PCP - General Nurse Practitioner 10/22/24 Naa Canales MD [address] [place] [address] Historical LMR Provider 12/15/16 documented as of this encounter Additional Source Comments The information contained in this document represents components of the legal health record. It is not the complete legal health record.[facility]
--- OUTSIDE RECORDS SUMMARY | 2024-11-27 12:34 | XMS_ITS | Encounter Summary ---
Author Organization [facility] Address [address] [facility] [address] [place] [address] Phone Care Team Providers Care Turbo Operator Name Role Phone Naa Canales MD Unavailable [phone] Suzie Ramachandran MD Primary Care Provider + Miguel Angel Clemente MD Primary Care Provider [phone]- [phone] [facility] Primary [facility]ide r [facility] Primary Care Provide r Encounter Details Date Type Department Care Team (Late st Contact Info) Description 05/04/2021 Transcribe Orders Virtual Department [address] [place] [address] Yang Venegas PA [address] [place] [address] [email or web address] Hip pain (Primary Dx) Social History Tobacco Use Types [...] out of work due to changes at [employer]. Not on file Not o n file Not on file documented as of this encounter Plan of Treatment Not on file documented as of this encounter Visit Diagnoses Diagnosis Hip pain- Primary Pain in joint, pelvic region and thigh documented in this encounter Care Teams Turbo Operator Relationship Specialty Start Date End Date Suzie Ramachandran MD [address] [place] [address] [email or web address] PCP - General Family Medicine 03/03/20 06/07/23 Miguel Angel Clemente MD [address] [place] [address] [email or web address] PCP - General Internal Medicine 06/08/23 03/19/24 [facility] [address] [place] [address] PCP - General Nurse Practitioner 03/20/24 10/21/24 [facility] [address] [place] [address] PCP - General Nurse Practitioner 10/22/24 Naa Canales MD [address] [place] [address] Historical LMR Provider 12/15/16 documented as of this encounter Additional Source Comments The information contained in this document represents components of the legal health record. It is not the complete legal health record.[facility]
--- OUTSIDE RECORDS SUMMARY | 2024-11-27 12:34 | XMS_ITS | Clinical Summary ---
Author Organization [facility] Address [address] [place] [address] Care Team Providers Care Winding Lathe Operator Name Role Phone Sim Katiuska Primary Care Provider [phone] Allergies No known active allergies Medications albuterol [...] Take 10 mg by mouth. 03/05/2024 Active celecoxib (CeleBREX) 100 mg capsule Take 100 mg by mouth 2 times daily. 09/14/2024 Active gabapentin (NEURONTIN) 100 mg capsule TAKE 2 CAPSULES BY MOUTH IN THE MORNING AND 3 CAPSULES AT BEDTIME Active Encounters Date Type Department Care Team Description 11/23/2024 9:40 AM EDT Office Visit [facility] A [address] [place] [address] Marty Campbell MD Spondylolisthesis of lumbar region (Primary Dx); Radiculopathy due to lumbar intervertebral disc disorder 11/01/2024 Telephone [facility] [address] [place], [place] [phone] Dye Mixer: Venessa L GeorgiaCarli Colby MD 11/01/2024 Transcribe Orders [facility] [address] [place] [address] Dye Mixer: Katiuska Maier THOMAS positive (Primary Dx) 10/23/2024 Orders Only [facility] B [address] [place] [address] Provider, MD Félix 10/09/2024 Orders Only External Imaging [address] [place] [address] Radiology, External from Last 3 Months Family History Relation Name Status Comments Father Mother Alive Social History Tobacco Use Types [...] Mass Index 25.75 11/23/2024 9:40 AM EDT Plan of Treatment Upcoming Encounters Date Type Department Care Team (Late st Contact Info) Description 01/08/2025 10:30 AM EST Office Visit [facility] [address] [place] [address] Dye Mixer: Linden Julien MD [address] [phone] Health Maintenance Due Date Last Done Comments Cervical Cancer Screening 1963 Cologuard 1963 Colon Cancer Screening 1963 Colonoscopy 1963 FOBT / Fit Test 1963 HIV Screening 1963 HPV and Pap Smear 1963 Hepatitis C Screening 1963 Pap Smear 1963 Sigmoidoscopy [address] Lung Cancer Screening (Baseline) 05/16/2013 Pneumococcal Vaccine: 50+ Years (1 of 1 - PCV) 05/16/2013 Alcohol/Substance Use Screening 02/29/2024 Depression Screening and Follow-Up 02/29/2024 Social Drivers of Health Annual Screening 02/29/2024 Influenza Vaccine (#1) 2024 , 12/25/2022, 02/15/2022, Additional history exists DTaP,Tdap,and Td Vaccines (2 - Td or Tdap) 07/28/2025 07/29/2015 Diabetes Screening 09/18/2027 09/17/2024, 09/17/2024 RSV Vaccine (60+ years old and patients) (1 - 1-dose 75+ series) 05/16/2038 Zoster Vaccines Completed 09/08/2021, 05/04/2021 COVID-19 Vaccine Completed 02/27/2024, , 12/30/2021, Additional history exists Hepatitis B Vaccines Aged Out No long er eligible based on patient's age to complete this topic Procedures * Due to [place] [employer] law, this organization might not be sharing negative HIV tests. Procedure Name Priority Date/Time Associated Diagnosis Comments AMB EXTERNAL MRI L-SPINE, OUTSIDE RESULT Routine 10/23/2024 2:14 PM EDT AMB EXTERNAL MRI LUMBAR SPINE, OUTSIDE RESULT 10/09/2024 AMB EXTERNAL MRI LUMBAR SPINE, OUTSIDE RESULT 10/09/2024 from Last 3 Months Results * Due to [place] [employer] law, this organization might not be sharing negative HIV tests. * MRI L-Spine, Outside Result (10/23/2024 2:14 PM EDT) Anatomical Region Laterality Modality Other us Unknown Provider MD LARSON EXTERNAL RESULT PROCEDUR ES Final Result * MRI Lumbar Spine, Outside Result (10/09/2024) Only the most recent of2 resultswithin the time period is included. Anatomical Region Laterality Modality Other 10/09/2024 us Onbase [place] AMB EXTERNAL RESULT PROCEDURE S Final Result from Last 3 Months Insurance [facility] Care Teams Winding Lathe Operator Relationship Specialty Start Date End Date [place], [place] [address] [place] [address] PCP - General 04/27/24
--- OUTSIDE RECORDS SUMMARY | 2024-11-27 12:35 | XMS_ITS | Encounter Summary ---
Author Organization [facility] Address [address] [facility] [address] [place] [address] Phone Care Team Providers Care Millinery Copyist Name Role Phone Dagmar Resendiz NP Unavailable [phone] Shad Bella MD Unavailable Naa Canales MD Unavailable [phone] Suzie Ramachandran MD Primary Care Provider + Miguel Angel Clemente MD Primary Care Provider [phone] [facility] Primary Care Provide r [facility] Primary Care Provide r Encounter Details Date Type Department Care Team (Late st Contact Info) Description 05/16/2020 Procedure Pass OR Admitting Dept - Virtual Department [address] [place] [address] Social History Tobacco Use Types Packs/Day Years [...] out of work due to changes at [employer]. Not on file Not o n file Not on file documented as of this encounter Plan of Treatment Not on file documented as of this encounter Visit Diagnoses Not on filedocumented in this encounter Care Teams Millinery Copyist Relationship Specialty Start Date End Date Suzie Ramachandran MD [address] [place] [address] [email or web address] PCP - General Family Medicine 03/03/20 06/07/23 Miguel Angel Clemente MD [address] [place] [address] [email or web address] PCP - General Internal Medicine 06/08/23 03/19/24 Katiuska Montemayor FNP [address] [place] [address] PCP - General Nurse Practitioner 03/20/24 10/21/24 Katiuska Montemayor FNP [address] [place] [address] PCP - General Nurse Practitioner 10/22/24 Dagmar Resendiz NP [address] [place] [address] Historical LMR Provider 12/15/16 2 Shad Bella MD [address] [place] [address] [email or web address] Historical LMR Provider 12/15/16 03/07/21 Naa Canales MD [address] [place] [address] Historical LMR Provider 12/15/16 documented as of this encounter Additional Source Comments The information contained in this document represents components of the legal health record. It is not the complete legal health record.[facility]
--- OUTSIDE RECORDS SUMMARY | 2024-11-27 12:35 | XMS_ITS | Encounter Summary ---
Author Organization [facility] Address [address] [facility] [address] [place] [address] Phone Care Team Providers Care Ball Shagger Name Role Phone Dagmar Resendiz NP Unavailable [phone] Shad Bella MD Unavailable [phone] Naa Canales MD Unavailable [phone] Suzie Ramachandran MD Primary Care Provider + Miguel Angel Clemente MD Primary Care Provider [phone] [facility] Primary Care Provide r [facility] Primary Care Provide r Encounter Details Date Type Department Care Team (Latest Contact Info) Description 04/14/2020 Ancillary Orders Virtual Department [address] [place] [address] Sarah Azar NP [address] [address] [email or web address] Osteoporosis, unspecified osteoporosis type, unspecified pathological fracture presence Social History Tobacco Use Types Packs/Day Years [...] out of work due to changes at [facility]. Not on file Not o n file Not on file documented as of this encounter Plan of Treatment Not on file documented as of this encounter Results * BD DXA AXIAL (SPINE) WITH HIP (06/04/2020 3:39 PM EDT) Anatomical Region Laterality Modality Bone Density Bone Density 06/04/2020 3:48 PM EDT Impressions 06/04/2020 3:49 PM EDT Normal bone density. Narrative 06/04/2020 3:49 PM EDT COMPARISON: None. BONE DENSITY FINDINGS: History: This is a 55-year-old postmenopausal female. Evaluation of the lumbar spine and hips was performed and felt to be technically adequate. Total bone mineral density in the L1-L4 vertebral bodies was calculated at 1.017 gm/cm2 with a T-score of -0.3 falling within the WHO classification of normal. Z-score of 0.9. Total bone mineral density in the right hip was calculated at 0.921 gm/cm2 with a T-score of -0.2 falling within the WHO classification of normal. Z-score of 0.6. Total bone mineral density in the left hip was calculated at 0.885 gm/cm2 with a T-score of -0.5 falling within the WHO classification of normal. Z-score of 0.3. Procedure Note Phillip Voss MD - 06/04/2020 COMPARISON: None. BONE DENSITY FINDINGS: History: This is a 55-year-old postmenopausal female. Evaluation of the lumbar spine and hips was performed and felt to betechnically adequate. Total bone mineral density in the L1-L4 vertebral bodies was calculated at1.017 gm/cm2 with a T-score of -0.3 falling within the WHO classificationof normal. Z- score of 0.9. Total bone mineral density in the right hip was calculated at 0.921 gm/ga9axtm a T-score of -0.2 falling within the WHO classification of normal.Z-score of 0.6. Total bone mineral density in the left hip was calculated at 0.885 gm/ze7zpzg a T-score of -0.5 falling within the WHO classification of normal.Z-score of 0.3. IMPRESSION: Normal bone density. Sarah Azar NP IMG BD BONE DENSITY DEXA Final Result documented in this encounter Visit Diagnoses Diagnosis Osteoporosis, unspecified osteoporosis type, unspecified pathological fracture presence Osteoporosis, unspecified osteoporosis type, unspecified pathological fracture presence documented in this encounter Care Teams Ball Shagger Relationship Specialty Start Date End Date Suzie Ramachandran MD [address] [place] [address] [email or web address] PCP - General Family Medicine 03/03/20 06/07/23 Miguel Angel Clemente MD [address] [place] [address] [email or web address] PCP - General Internal Medicine 06/08/23 03/19/24 [facility] [address] [place] [address] PCP - General Nurse Practitioner 03/20/24 10/21/24 Katiuska Montemayor FNP [address] [place] [address] PCP - General Nurse Practitioner 10/22/24 Dagmar Resendiz NP [address] [place] [address] Historical LMR Provider 12/15/16 2 Shad Bella MD [address] [place] [address] [email or web address] Historical LMR Provider 12/15/16 03/07/21 Naa Canales MD [address] [place] [address] Historical LMR Provider 12/15/16 documented as of this encounter Additional Source Comments The information contained in this document represents components of the legal health record. It is not the complete legal health record.[facility]
--- OUTSIDE RECORDS SUMMARY | 2024-11-27 12:35 | XMS_ITS | Encounter Summary ---
Author Organization [facility] Address [address] [place] [address] Phone Care Team Providers Care Director Content Marketing Name Role Phone Naa Canales MD Unavailable [phone] Miguel Angel Clemente MD Primary Care Provider [phone] [facility] Primary Care Provide r [facility] Primary Care Provide r Encounter Details Date Type Department Care Team (Latest Contact Info) Description 03/06/2024 Transcribe Orders Virtual Department [address] [place] [address] Kaitlyn Kan MD [address] [place] [address] [email or web address] Chronic pain of right knee (Primary Dx); Other chronic pain Social History Tobacco Use Types Packs/Day [...] out of work due to changes at [facility]. Not on file Not o n file Not on file documented as of this encounter Plan of Treatment Scheduled Orders Name Type Priority Associated Diagnoses Orde r Schedule XR Knee (Right) Imaging Routine Chronic pain of right knee Other chronic pain Expected: 03/06/2024, Expires: 03/06/2025 documented as of this encounter Visit Diagnoses Diagnosis Chronic pain of right knee- Primary Other chronic pain documented in this encounter Care Teams Director Content Marketing Relationship Specialty Start Date End Date Miguel Angel Clemente MD [address] [place] [address] [email or web address] PCP - General Internal Medicine 06/08/23 03/19/24 [place], [place] JUNIE Julien [address] [place] [address] PCP - General Nurse Practitioner 03/20/24 10/21/24 [place], [place] JUNIE Julien [address] [place] [address] PCP - General Nurse Practitioner 10/22/24 Naa Canales MD [address] [place] [address] Historical LMR Provider 12/15/16 documented as of this encounter Additional Source Comments The information contained in this document represents components of the legal health record. It is not the complete legal health record.[facility]
--- OUTSIDE RECORDS SUMMARY | 2024-11-27 12:35 | XMS_ITS | Encounter Summary ---
Author Organization [facility] Address [address] [place] [address] Phone Care Team Providers Care Adjustment Supervisor Name Role Phone Naa Canales MD Unavailable [phone] Suzie Ramachandran MD Primary Care Provider + Miguel Angel Clemente MD Primary Care Provider [phone] [facility] Primary Care Provide r [facility] Primary Care Provide r Encounter Details Date Type Department Care Team (Late st Contact Info) Description 06/08/2021 Transcribe Orders Virtual Department [address] [place] [address] Suzie Ramachandran MD [address] [place] [address] [email or web address] Social History Tobacco Use Types Packs/Day Years [...] out of work due to changes at [facility] [employer]. Not on file Not o n file Not on file documented as of this encounter Plan of Treatment Not on file documented as of this encounter Visit Diagnoses Not on filedocumented in this encounter Care Teams Adjustment Supervisor Relationship Specialty Start Date End Date Suzie Ramachandran MD [address] [place] [address] [email or web address] PCP - General Family Medicine 03/03/20 06/07/23 Miguel Angel Clemente MD [address] [place] [address] [email or web address] PCP - General Internal Medicine 06/08/23 03/19/24 Katiuska Montemayor FNP [address] [place] [address] PCP - General Nurse Practitioner 03/20/24 10/21/24 Katiuska Montemayor FNP [address] [place] [address] PCP - General Nurse Practitioner 10/22/24 Naa Canales MD [address] [place] [address] Historical LMR Provider 12/15/16 documented as of this encounter Additional Source Comments The information contained in this document represents components of the legal health record. It is not the complete legal health record.[facility]
--- OUTSIDE RECORDS SUMMARY | 2024-11-27 12:35 | XMS_ITS | Encounter Summary ---
Author Organization [facility] Address [address] [place] [address] Phone Care Team Providers Care Salt Washer Name Role Phone Naa Canales MD Unavailable [phone] [facility] Primary Care Provide r [facility] Primary Care Provide r Encounter Details Date Type Department Care Team (Late st Contact Info) Description 09/18/2024 Procedure Pass [facility], [address] [address] Social History Tobacco Use Types Packs/Day Years [...] out of work due to changes at [employer]. Not on file Not o n file Not on file documented as of this encounter Plan of Treatment Not on file documented as of this encounter Visit Diagnoses Not on filedocumented in this encounter Care Teams Salt Washer Relationship Specialty Start Date End Date Katiuska Montemayor FNP [address] [place] [address] PCP - General Nurse Practitioner 03/20/24 10/21/24 Katiuska Montemayor FNP [address] [place] [address] PCP - General Nurse Practitioner 10/22/24 Naa Canales MD [address] [place] [address] Historical LMR Provider 12/15/16 documented as of this encounter Additional Source Comments The information contained in this document represents components of the legal health record. It is not the complete legal health record.[facility]
--- OUTSIDE RECORDS SUMMARY | 2024-11-27 12:35 | XMS_ITS | Encounter Summary ---
Author Organization [facility] Address [address] [facility] [address] [place] [address] Phone Care Team Providers Care Eap Counselor Name Role Phone Naa Canales MD Unavailable [phone] Suzie Ramachandran MD Primary Care Provider + Miguel Angel Clemente MD Primary Care Provider [phone] [facility] Primary Care Provide r [facility] Primary Care Provide r Encounter Details Date Type Department Care Team (Late st Contact Info) Description 11/25/2022 Transcribe Orders Virtual Department [address] [place] [address] Priyank Morillo, DO [address] [place] [id number] [email or web address] Social History Tobacco Use Types Packs/Day Years [...] out of work due to changes at [employer]. Not on file Not o n file Not on file documented as of this encounter Plan of Treatment Not on file documented as of this encounter Visit Diagnoses Not on filedocumented in this encounter Care Teams Eap Counselor Relationship Specialty Start Date End Date Suzie Ramachandran MD [address] [place] [id number] PCP - General Family Medicine 03/03/20 06/07/23 Miguel Angel Clemente MD [address] [place] [address] [email or web address] PCP - General Internal Medicine 06/08/23 [facility]19[facility] [address] [place] [address] PCP - General Nurse Practitioner 03/20/24 10/21/24 Katiuska Montemayor FNP [address] [place] [address] PCP - General Nurse Practitioner 10/22/24 Naa Canales MD [address] [place] [address] Historical LMR Provider 12/15/16 documented as of this encounter Additional Source Comments The information contained in this document represents components of the legal health record. It is not the complete legal health record.[facility]
--- OUTSIDE RECORDS SUMMARY | 2024-11-27 12:35 | XMS_ITS | Encounter Summary ---
Author Organization [facility] Address [address] [place] [address] Phone Care Team Providers Care Bight Maker Name Role Phone Naa Canales MD Unavailable [phone] Miguel Angel Clemente MD Primary Care Provider [phone] [facility] Primary Care Provide r [facility] Primary Care Provide r Encounter Details Date Type Department Care Team (Late st Contact Info) Description 06/08/2023 Procedure Pass [facility] [place] [place] [address] Social History Tobacco Use Types Packs/Day Years [...] out of work due to changes at [employer]. Not on file Not o n file Not on file documented as of this encounter Plan of Treatment Not on file documented as of this encounter Visit Diagnoses Not on filedocumented in this encounter Care Teams Bight Maker Relationship Specialty Start Date End Date Miguel Angel Clemente MD [address] [place] [address] [email or web address] PCP - General Internal Medicine 06/08/23 [facility] [address] [place] [address] PCP - General Nurse Practitioner 03/20/24 10/21/24 [facility] [address] [place] [address] PCP - General Nurse Practitioner 10/22/24 Naa Canales MD [address] [place] [address] Historical LMR Provider 12/15/16 documented as of this encounter Additional Source Comments The information contained in this document represents components of the legal health record. It is not the complete legal health record.[facility]
== END 2024-11-27 11:31 | disposition home or self-care (01) ==
LOC: HO.HVS 11:07
PROVIDERS: Visit Provider Surgery Vascular Surgery
DX: I83.11 Varicose veins of right lower extremity with inflammation (principal)
CPT/HCPCS: 99214